=== PATIENT | female | born 1930 | race Caucasian/White ===

== ENCOUNTER 2016-05-17 15:45 | Inpatient (IN) | payer MEDICARE, OTHER ==
[~2016-05-17] VITALS: Ht 167.6 cm; Wt 85.0 kg
[2016-05-17] VITALS (26 sets, daily range): BP systolic 119–202; BP diastolic 57–128; PULSE 52–125; RESP 13–49; O2SAT 92–100; Ht 167.6 cm; Wt 85.0 kg
[~2016-05-17 15:45] MED LIST: ACET-1651 PO; ENAL5TAB85 PO; FLEC50TA PO; LEVO88TA39 PO; PANT40TA32 PO; RIVA20TA PO
--- NOTE | 2016-05-17 16:15 | NUR ---
Admit Female pt admitted as direct admit from [facility]. pt arrived via EMS cart. Pt able to ambulate from CCU room door into bed with assistance of 1. Pt a/o x3, on RA, IVL to LAC. Pt oriented to room. Pt in tachy rhythm of 120-130s. EKG showed a-flutter. Pt has mild SOA with talking/activity but reports that to be normal. Daylin GAINES notified of pt's arrival and at bedside assessing. Will continue to monitor.
--- OUTSIDE RECORDS SUMMARY | 2016-05-17 16:17 | XMS REPORT | CCD ---
Author Author YVONNE GARCIA Organization Unknown Address [address] [place] [phone] Phone 0 Care Team Providers Care Registered Occupational Therapist Name Role Phone Sanjuana PEREZ Attending Physician 0 Vital Signs Unknown. Allergies Allergy Code Allergy Type Reaction Status EGG ALBUMIN 0 Drug allergy (disorder) Active FLU VACCINE 0 Drug allergy (disorder) Active LODINE 0 Drug allergy (disorder) Active IMIPRAMINE 0 Drug allergy (disorder) Active Procedures Unknown. History of Immunizations Unknown. Problems Unknown. Results UA AUTO W/ MICRO Test Name Code Test Result Test Units Test Date/Time COLOR Yellow N/A 05/29/2013 14:25 APPEARANCE Clear N/ A 05/29/2013 14:25 GLUCOSE Negative N/ A 05/29/2013 14:25 BILIRUBIN Negative N /A 05/29/2013 14:25 KETONE Negative N/A 05/29/2013 14:25 SPEC GRAVITY <=1.005 N/A 05/29/2013 14:25 BLOOD Moderate N/A 05/29/2013 14:25 PROTEIN Negative N/ A 05/29/2013 14:25 PH 5.5 N/A 05/29/2013 14:25 UROBILINOGEN 0.2 N/ A 05/29/2013 14:25 NITRITE Negative N/ A 05/29/2013 14:25 LEUKOCYTES Small N/ A 05/29/2013 14:25 MICRO RBC 10-20 N/A 05/29/2013 14:25 MICRO WBC TNTC N/A 05/29/2013 14:25 BACTERIA 2+ N/A 05/29/2013 14:25 EPI CELLS 0-5 N/A 05/29/2013 14:25 MUCUS None Seen N/A 05/29/2013 14:25 AMORPHOUS None Seen N/A 05/29/2013 14:25 YEAST None Seen N/A 05/29/2013 14:25 CRYSTALS None Seen N /A 05/29/2013 14:25 CAST None Seen N/A 05/29/2013 14:25 URINE CULTURE? YES N /A 05/29/2013 14:25 Medications Unknown. Medications Administered Unknown. Encounters Unknown. Social History Smoking Status Code Start Date End Date Never smoker [id number] Patient Decision Aids Unknown. Instructions You were admitted to [facility] [place] [facility] on 05/29/2013. You were discharged from [facility] [place] [facility] on 05/29/2013. Should you have any questions prior to discharge, please contact a member of your healthcare team. If you have left the hospital and have any questions, please contact your primary care physician. Chief Complaint and Reason For Visit Chief Complaint Date of Onset LAB Function Status Unknown. Plan of Care Unknown. Referral/Transition of Care Unknown.
--- OUTSIDE RECORDS SUMMARY | 2016-05-17 16:17 | XMS REPORT | CCD ---
Author Author YVONNE GARCIA Organization Unknown Address [address] [place] [phone] Phone 0 Care Team Providers Care Fishing Vessel Deckhand Name Role Phone RASHAADBushra Attending Physician 0 Vital Signs Unknown. Allergies Allergy Code Allergy Type Reaction Status EGG ALBUMIN 0 Drug allergy (disorder) Active FLU VACCINE 0 Drug allergy (disorder) Active LODINE 0 Drug allergy (disorder) Active IMIPRAMINE 0 Drug allergy (disorder) Active Procedures Unknown. History of Immunizations Unknown. Problems Unknown. Results Unknown. Medications Unknown. Medications Administered Unknown. Encounters Unknown. Social History Smoking Status Code Start Date End Date Never smoker [id number] Patient Decision Aids Unknown. Instructions You were admitted to [facility] [place] on 05/11/2013. You were discharged from [facility] [place] on 05/11/2013. Should you have any questions prior to discharge, please contact a member of your healthcare team. If you have left the hospital and have any questions, please contact your primary care physician. Chief Complaint and Reason For Visit Chief Complaint Date of Onset XRAY LT KNEE Function Status Unknown. Plan of Care Unknown. Referral/Transition of Care Unknown.
--- OUTSIDE RECORDS SUMMARY | 2016-05-17 16:17 | XMS REPORT | CCD ---
Author Author MIHIR MARTINEZ Organization Unknown Address [address], [place] [phone] Phone 0 Care Team Providers Care Mold Cleaner Name Role Phone JOHNATHAN ENRIQUEZ Attending Physician [phone] THUAN VAZing Physician [phone] Vital Signs Unknown or Not Available. Allergies Allergy Code Allergy Type Reaction Status EGG ALBUMIN 0 Drug allergy Active FLU VACCINE 0 Drug allergy Active LODINE 20281016 Drug allergy Active IMIPRAMINE 56 Drug allergy Active Procedures Procedure Code Procedure Type Date CHEST [address] 03/18/2016 History of Immunizations Unknown or Not Available. Problems Problem Code Start Date Resolved Date Status Rapid afib 802625194 Active Acute CHF 39554777 Active Chronic UTI 448403763 Active Results Unknown or Not Available. Active Medications Medication Code Dose Units Frequency Route Modification Start Date/Time Levothyroxine 0.088MG Oral Tablet 499584 0.088 MILLIGRAMS DAILY ORAL 09/24/2013 08:58 Prescription Detail 0.088 MILLIGRAMS ORAL DAILY Pantoprazole Sodium 40MG Oral Tablet, Enteric Coated 531617 40 MILLIGRAMS DAILY ORAL 09/24/2013 08:58 Prescription Detail 40 MILLIGRAMS ORAL DAILY Potassium Chloride 20MEQ Oral Tablet, Extended Release 6328111 20 MEQ DAILY ORAL 09/24/2013 08:58 Prescription Detail 20 MEQ ORAL DAILY Xarelto 20MG Oral Tablet [id number] 20 MILLIGRAMS DAILY ORAL 09/24/2013 08:58 Prescription Detail 20 MILLIGRAMS ORAL DAILY Medications Administered During Visit Unknown or Not Available. Encounters Unknown or Not Available. Social History Smoking Status Code Start Date End Date Never smoker 215692004 Patient Decision Aids Unknown or Not Available. Discharge Instructions You were admitted to [facility] on 03/18/2016 16:13 You were discharged from [facility] on 03/18/2016 16:13 Should you have any questions prior to discharge, please contact a member of your healthcare team. If you have left the hospital and have any questions, please contact your primary care physician. Chief Complaint and Reason For Visit Chief Complaint Date of Onset CXR Function Status Unknown or Not Available. Plan of Care Unknown or Not Available. Referral/Transition of Care Unknown or Not Available.
--- OUTSIDE RECORDS SUMMARY | 2016-05-17 16:17 | XMS REPORT | CCD ---
Author Author YVONNE GARCIA Organization Unknown Address [address] [facility] [place] [phone] Phone 0 Care Team Providers Care Button Decorating Machine Operator Name Role Phone THUAN VAZ Attending Physician 0 Vital Signs Unknown or Not Available. Allergies Allergy Code Allergy Type Reaction Status EGG ALBUMIN 0 Drug allergy Active FLU VACCINE 0 Drug allergy Active LODINE 676411 Drug allergy Active IMIPRAMINE 5691 Drug allergy Active Procedures Unknown or Not Available. History of Immunizations Unknown or Not Available. Problems Problem Code Start Date Resolved Date Status Rapid afib 891992152 Active Acute CHF 31787538 Active Chronic UTI 842253073 Active Results CULTURE URINE - Collect Date/Time: 10/02/2014 05:00 Test Name Code Test Result Test Units Test Ref Range SPEC SOURCE: RANDOM N/A Urine Culture, Routine 630-4 Final report N/A Active Medications Medication Code Dose Units Frequency Route Modification Start Date/Time Levothyroxine 0.088MG Oral Tablet 561483 0.088 MILLIGRAMS DAILY ORAL 09/24/2013 08:58 Prescription Detail 0.088 MILLIGRAMS ORAL DAILY Pantoprazole Sodium 40MG Oral Tablet, Enteric Coated 415224 40 MILLIGRAMS DAILY ORAL 09/24/2013 08:58 Prescription Detail 40 MILLIGRAMS ORAL DAILY Potassium Chloride 20MEQ Oral Tablet, Extended Release 717442 20 MEQ DAILY ORAL 09/24/2013 08:58 Prescription Detail 20 MEQ ORAL DAILY Xarelto 20MG Oral Tablet 2813393 20 MILLIGRAMS DAILY ORAL 09/24/2013 08:58 Prescription Detail 20 MILLIGRAMS ORAL DAILY Medications Administered During Visit Unknown or Not Available. Encounters Unknown or Not Available. Social History Smoking Status Code Start Date End Date Never smoker [id number] Patient Decision Aids Unknown or Not Available. Discharge Instructions You were admitted to [facility] on 10/02/2014. You had the following tests done: SPEC SOURCE: Urine Culture, Routine You were discharged from [facility] on 10/02/2014. Should you have any questions prior to discharge, please contact a member of your healthcare team. If you have left the hospital and have any questions, please contact your primary care physician. Chief Complaint and Reason For Visit Chief Complaint Date of Onset LAB Function Status Unknown or Not Available. Plan of Care Unknown or Not Available. Referral/Transition of Care Unknown or Not Available.
--- OUTSIDE RECORDS SUMMARY | 2016-05-17 16:17 | XMS REPORT | CCD ---
Author Author YVONNE GARCIA Organization Unknown Address [address] [place] [phone] Phone 0 Care Team Providers Care Cooker Operator Name Role Phone TAMI STALLWORTH Attending Physician 0 Vital Signs Unknown or Not Available. Allergies Allergy Code Allergy Type Reaction Status EGG ALBUMIN 0 Drug allergy Active FLU VACCINE 0 Drug allergy Active LODINE 20281016 Drug allergy Active IMIPRAMINE 56 Drug allergy Active Procedures Unknown or Not Available. History of Immunizations Unknown or Not Available. Problems Problem Code Start Date Resolved Date Status Rapid afib 648097697 Active Acute CHF 12033893 Active Chronic UTI 675179517 Active Results BASIC METABOLIC - Collect Date/Time: 05/17/2014 09:37 Test Name Code Test Result Test Units Test Ref Range GLUCOSE 85 mg/dL L=70 H=110 BUN 19 mg/dL L=7 H=18 CREATININE 1.10 mg/ dL L=0.60 H=1.30 AGE 83 YEARS GFR 50.3 SODIUM 140 mmol/L L=136 H=145 POTASSIUM 4.5 mmol/ L L=3.5 H=5.1 CHLORIDE 104 mmol/L L=98 H=107 CO2 29 mmol/L L=21 H=32 CALCIUM 8.9 mg/dL L=8.5 H=10.1 PRO B-TYPE NATRIURETIC PEPTIDE - Collect Date/Time: 05/17/2014 09:37 Test Name Code Test Result Test Units Test Ref Range PBNP 154 pg/mL L=0 H=450 Active Medications Medication Code Dose Units Frequency Route Modification Start Date/Time Flecainide Acetate 50MG Oral Tablet 151348 50 MILLIGRAMS TWICE A DAY ORAL 09/24/2013 08:58 Levothyroxine 0.088MG Oral Tablet 632430 0.088 MILLIGRAMS DAILY ORAL 09/24/2013 08:58 Pantoprazole Sodium 40MG Oral Tablet, Enteric Coated 956385 40 MILLIGRAMS DAILY ORAL 09/24/2013 08:58 Potassium Chloride 20MEQ Oral Tablet, Extended Release 232087 20 MEQ DAILY ORAL 09/24/2013 08:58 Xarelto 20MG Oral Tablet 3207389 20 MILLIGRAMS DAILY ORAL 09/24/2013 08:58 Medications Administered During Visit Unknown or Not Available. Encounters Unknown or Not Available. Social History Smoking Status Code Start Date End Date Never smoker 122869884 Patient Decision Aids Unknown or Not Available. Discharge Instructions You were admitted to [facility] on 05/17/2014. You were discharged from [facility] on 05/17/2014. Should you have any questions prior to discharge, please contact a member of your healthcare team. If you have left the hospital and have any questions, please contact your primary care physician. Chief Complaint and Reason For Visit Unknown or Not Available. Function Status Unknown or Not Available. Plan of Care Unknown or Not Available. Referral/Transition of Care Unknown or Not Available.
--- OUTSIDE RECORDS SUMMARY | 2016-05-17 16:17 | XMS REPORT | Summary of Care ---
Author Author Angelo Britt M.D. Unknown Address [address] [place] [address] [place] [address] Phone Unavailable Care Team Providers Care Classification Analyst Name Role Phone Angelo Britt M.D. 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 * Refills: 0 * Started 21-Nov-2014 ActivePotassium Chloride Tamy ER 10 MEQ Oral Tablet Extended Release TAKE 1 TABLET DAILY. * Refills: 0 * Started 21-Nov-2014 ActivePantoprazole Sodium 40 MG Oral Tablet Delayed Release TAKE 1 TABLET DAILY. * Refills: 0 * Started 21-Nov-2014 ActiveLisinopril 5 MG Oral Tablet TAKE 1 TABLET DAILY. * Refills: 0 * Started 21-Nov-2014 ActiveLevothyroxine Sodium 88 MCG Oral Tablet TAKE 1 TABLET DAILY. * Refills: 0 * Started 21-Nov-2014 ActiveFurosemide 20 MG Oral Tablet TAKE 1/2 TABLET DAILY * Refills: 0 * Started 21-Nov-2014 ActiveAcetaminophen 500 MG Oral Tablet TAKE 1 TABLET TWO TO THREE TIMES DAILY * Refills: 0 * Started 21-Nov-2014 ActiveFluconazole 100 MG Oral Tablet Take 1 Tablet Daily for 3 days * Quantity: 3 Refills: 0 Angelo Britt M.D.* Started 21-Nov-2014 ActiveEstrace 0.1 MG/GM Vaginal Cream * Refills: 0 Angelo Britt M.D.* Started 20-Feb-2015 Active Allergies and Adverse Reactions Name Dates Details gabapentin Status: Active Reclast SOLN Status: Active Sulfa Drugs Status: Active Past Medical History Name Dates Details History of atrial fibrillation (V12.59, Z86.79) Status: Resolved History of recurrent urinary tract infection (V13.02, Z87.440) Status: Resolved History of thyroid disease (V12.29, Z86.39) Status: Resolved Procedures Procedure Dates Details History of Cholecystectomy History of Tonsillectomy Procedures not documented Immunization Name Dates Details Immunizations not documented Family History Mother* Name Dates Details Family history of Status: Active Father* Name Dates Details Family history of lung cancer (V16.1, Z80.1) Status: Active Brother* Name Dates Details Family history of lung cancer (V16.1, Z80.1) Status: Active Family history of cardiac disorder (V17.49, Z82.49) Status: Active Social History Name Dates Details Smoking Status* Never smoker Vital Signs Date Test Result Details 20-Feb-2015 10:08 BP Systolic 81 mm[Hg] Status: BP Diastolic 50 mm[Hg] Status: Heart Rate 60 /min Status: Height 67 in Status: Weight 180 lb Status: Body Mass Index Calculated 28.19 kg/m2 Status: Body Surface Area Calculated 1.93 m2 Status: Results Date Description Value Details Results not documented Plan of Care Planned Observations* Name Dates Details Planned Goals not documented Goal Planned Encounters* Appointment; Provider: Angelo Britt On 13-Mar-2015 10:45 Instructions * Instructions not documented Encounters Appointment; Angelo Britt Encounter Diagnosis: Problem not documented On 20-Feb-2015 10:00 Appointment; Angelo Britt Encounter Diagnosis: Problem not documented On 12-Dec-2014 11:00 Appointment; Angelo Britt Encounter Diagnosis: Problem not documented On 21-Nov-2014 10:45
--- OUTSIDE RECORDS SUMMARY | 2016-05-17 16:17 | XMS REPORT | CCD ---
Author Author YVONNE GARCIA Organization Unknown Address [address] [facility] [place] [phone] Phone 0 Care Team Providers Care Consumer Loan Processor Name Role Phone TAMI STALLWORTH Attending Physician 0 Vital Signs Unknown or Not Available. Allergies Allergy Code Allergy Type Reaction Status EGG ALBUMIN 0 Drug allergy Active FLU VACCINE 0 Drug allergy Active LODINE 187643 Drug allergy Active IMIPRAMINE 56 Drug allergy Active Procedures Unknown or Not Available. History of Immunizations Unknown or Not Available. Problems Problem Code Start Date Resolved Date Status Rapid afib 918476937 Active Acute CHF 40955851 Active Chronic UTI 771998382 Active Results Unknown or Not Available. Active Medications Medication Code Dose Units Frequency Route Modification Start Date/Time Flecainide Acetate 50MG Oral Tablet 067800 50 MILLIGRAMS TWICE A DAY ORAL 09/24/2013 08:58 Levothyroxine 0.088MG Oral Tablet 600228 0.088 MILLIGRAMS DAILY ORAL 09/24/2013 08:58 Pantoprazole Sodium 40MG Oral Tablet, Enteric Coated 551951 40 MILLIGRAMS DAILY ORAL 09/24/2013 08:58 Potassium Chloride 20MEQ Oral Tablet, Extended Release 351633 20 MEQ DAILY ORAL 09/24/2013 08:58 Xarelto 20MG Oral Tablet 5162489 20 MILLIGRAMS DAILY ORAL 09/24/2013 08:58 Medications Administered During Visit Unknown or Not Available. Encounters Unknown or Not Available. Social History Smoking Status Code Start Date End Date Never smoker 283530933 Patient Decision Aids Unknown or Not Available. Discharge Instructions You were admitted to [facility] on 04/12/2014. You were discharged from [facility] on 04/12/2014. Should you have any questions prior to [...]
--- OUTSIDE RECORDS SUMMARY | 2016-05-17 16:17 | XMS REPORT | CCD ---
Author Author YVONNE GARCIA Organization Unknown Address [address] [place] [phone] Phone 0 Care Team Providers Care Chemical Machine Tender Name Role Phone RASHAAD, E Attending Physician 0 Vital Signs Unknown or Not Available. Allergies Allergy Code Allergy Type Reaction Status EGG ALBUMIN 0 Drug allergy Active FLU VACCINE 0 Drug allergy Active LODINE 093299 Drug allergy Active IMIPRAMINE 5691 Drug allergy Active Procedures Unknown or Not Available. History of Immunizations Unknown or Not Available. Problems Problem Code Start Date Resolved Date Status Rapid afib 548957255 Active Acute CHF 12229559 Active Chronic UTI 521728404 Active Results BASIC METABOLIC Test Name Code Test Result Test Units Test Date/Time GLUCOSE 96 mg/dL 09/29/2013 14:57 BUN 20 mg/dL 09/29/2013 14:57 CREATININE 1.10 mg/ dL 09/29/2013 14:57 AGE 82 YEARS 09/29/2013 14:57 GFR 50.4 09/29/2013 14:57 SODIUM 138 mmol/L 09/29/2013 14:57 POTASSIUM 4.4 mmol/ L 09/29/2013 14:57 CHLORIDE 101 mmol/L 09/29/2013 14:57 CO2 29 mmol/L 09/29/2013 14:57 CALCIUM 9.1 mg/dL 09/29/2013 14:57 PRO B-TYPE NATRIURETIC PEPTIDE Test Name Code Test Result Test Units Test Date/Time PBNP 141 pg/mL 09/29/2013 14:57 Medications Medication Code Dose Units Frequency Route Modification Start Date/Time Stop Date/ Time Cephalexin 250MG Oral Tablet 134662 125 MILLIGRAMS DAILY ORAL 09/24/2013 08:58 Potassium Chloride 20MEQ Oral Tablet, Extended Release 637726 20 MEQ DAILY ORAL 09/24/2013 08:58 Pantoprazole Sodium 40MG Oral Tablet, Enteric Coated 036755 40 MILLIGRAMS DAILY ORAL 09/24/2013 08:58 Flecainide Acetate 50MG Oral Tablet 305368 50 MILLIGRAMS TWICE A DAY ORAL 09/24/2013 08:58 Levothyroxine 0.088MG Oral Tablet 247647 0.088 MILLIGRAMS DAILY ORAL 09/24/2013 08:58 Xarelto 20MG Oral Tablet 0900210 20 MILLIGRAMS DAILY ORAL 09/24/2013 08:58 Medications Administered Unknown or Not Available. Encounters Unknown or Not Available. Social History Smoking Status Code Start Date End Date Never smoker 530426540 Patient Decision Aids Unknown or Not Available. Discharge Instructions You were admitted to [facility] on 09/29/2013. You were discharged from [facility] on 09/29/2013. Should you have any questions prior to [...]
--- OUTSIDE RECORDS SUMMARY | 2016-05-17 16:17 | XMS REPORT | CCD ---
Author Author YVONNE GARCIA Organization Unknown Address [address] [place], [place] [phone] Phone 0 Care Team Providers Care Welding Machine Operator Gas Metal Arc Name Role Phone Sanjuana PEREZ Attending Physician 0 Vital Signs Unknown or Not Available. Allergies Allergy Code Allergy Type Reaction Status EGG ALBUMIN 0 Drug allergy Active FLU VACCINE 0 Drug allergy Active LODINE 20281016 Drug allergy Active IMIPRAMINE 56 Drug allergy Active Procedures Unknown or Not Available. History of Immunizations Unknown or Not Available. Problems Unknown or Not Available. Results UA AUTO W/ MICRO Test Name Code Test Result Test Units Test Date/Time COLOR Yellow N/A 07/31/2013 15:40 APPEARANCE Clear N/ A 07/31/2013 15:40 GLUCOSE Negative N/ A 07/31/2013 15:40 BILIRUBIN Negative N /A 07/31/2013 15:40 KETONE Negative N/A 07/31/2013 15:40 SPEC GRAVITY 1.010 N /A 07/31/2013 15:40 BLOOD Small N/A 07/31/2013 15:40 PROTEIN Negative N/ A 07/31/2013 15:40 PH 7.0 N/A 07/31/2013 15:40 UROBILINOGEN 0.2 N/ A 07/31/2013 15:40 NITRITE Negative N/ A 07/31/2013 15:40 LEUKOCYTES Negative N/A 07/31/2013 15:40 MICRO RBC 0-2 N/A 07/31/2013 15:40 MICRO WBC 0-2 N/A 07/31/2013 15:40 BACTERIA Trace N/A 07/31/2013 15:40 EPI CELLS 0-5 N/A 07/31/2013 15:40 MUCUS None Seen N/A 07/31/2013 15:40 AMORPHOUS None Seen N/A 07/31/2013 15:40 YEAST None Seen N/A 07/31/2013 15:40 CRYSTALS None Seen N /A 07/31/2013 15:40 CAST None Seen N/A 07/31/2013 15:40 URINE CULTURE? NO N/ A 07/31/2013 15:40 Medications Unknown or Not Available. Medications Administered Unknown or Not Available. Encounters Unknown or Not Available. Social History Smoking Status Code Start Date End Date Never smoker [id number] Patient Decision Aids Unknown or Not Available. Discharge Instructions You were admitted to [facility] on 07/31/2013. You were discharged from [facility] on 07/31/2013. Should you have any questions prior to [...]
--- OUTSIDE RECORDS SUMMARY | 2016-05-17 16:17 | XMS REPORT | CCD ---
Author Author YVONNE GARCIA Organization Unknown Address [address] [place] [phone] Phone 0 Care Team Providers Care Information Director Name Role Phone Jennifer MENDOZA Attending Physician 0 KELLY A Primary Surgeon 0 Vital Signs Vital Sign Value Unit Date/Time Recent/Initial? Weight Measured 176 lbs 06/29/2014 17:45 Initial VS Height 20.2 in 2014 17:45 Initial VS BMI (Body Mass Index) 3.26 kg/m^2 06/29/2014 17:45 Initial VS BSA (Body Surface Area) 1.07 m^2 06/29/2014 17:45 Initial VS Allergies Allergy Code Allergy Type Reaction Status EGG ALBUMIN 0 Drug allergy Active FLU VACCINE 0 Drug allergy Active LODINE 20281016 Drug allergy Active IMIPRAMINE 5691 Drug allergy Active Procedures Unknown or Not Available. History of Immunizations Unknown or Not Available. Problems Problem Code Start Date Resolved Date Status Rapid afib 152875324 Active Acute CHF 38896511 Active Chronic UTI 962308138 Active Results TSH - Collect Date/Time: 06/29/2014 17:55 Test Name Code Test Result Test Units Test Ref Range TSH 0.86 uIU/mL L=0.36 H=3.74 Active Medications Medication Code Dose Units Frequency Route Modification Start Date/Time Levothyroxine 0.088MG Oral Tablet [id number] 0.088 MILLIGRAMS DAILY ORAL 09/24/2013 08:58 Pantoprazole Sodium 40MG Oral Tablet, Enteric Coated [id number] 40 MILLIGRAMS DAILY ORAL 09/24/2013 08:58 Potassium Chloride 20MEQ Oral Tablet, Extended Release [id number] 20 MEQ DAILY ORAL 09/24/2013 08:58 Xarelto 20MG Oral Tablet [id number] 20 MILLIGRAMS DAILY ORAL 09/24/2013 08:58 Medications Administered During Visit Unknown or Not Available. Encounters Encounter Diagnosis Diagnosis Code Start Date SHORTNESS OF BREATH 55066 06/29/2014 Social History Smoking Status Code Start Date End Date Never smoker [id number] Patient Decision Aids Unknown or Not Available. Discharge Instructions You were admitted to [facility] on 06/29/2014 with a principal diagnosis of SHORTNESS OF BREATH. You were discharged from [facility] on 06/29/2014. Should you have any questions prior to discharge, please contact a member of your healthcare team. If you have left the hospital and have any questions, please contact your primary care physician. Chief Complaint and Reason For Visit Chief Complaint Date of Onset SOA Function Status Unknown or Not Available. Plan of Care Unknown or Not Available. Referral/Transition of Care Unknown or Not Available.
--- OUTSIDE RECORDS SUMMARY | 2016-05-17 16:17 | XMS REPORT | CCD ---
Author Author MIHIR MARTINEZ Organization Unknown Address [address] [place], [place] [id number] Phone 0 Care Team Providers Care Superintendent Measurement Name Role Phone THUAN VAZ Attending Physician [phone] Vital Signs Unknown or Not Available. Allergies Allergy Code Allergy Type Reaction Status EGG ALBUMIN 0 Drug allergy Active FLU VACCINE 0 Drug allergy Active LODINE 20281016 Drug allergy Active IMIPRAMINE 56 Drug allergy Active Procedures Unknown or Not Available. History of Immunizations Unknown or Not Available. Problems Problem Code Start Date Resolved Date Status Rapid afib 529597681 Active Acute CHF 78936317 Active Chronic UTI 635856186 Active Results COMP METABOLIC - Collect Date/Time: 02/14/2015 10:45 Test Name Code Test Result Test Units Test Ref Range GLUCOSE 85 mg/dL L=70 H=110 BUN 12 mg/dL L=7 H=18 CREATININE 1.00 mg/ dL L=0.60 H=1.30 AGE 84 YEARS GFR 56.0 SODIUM 140 mmol/L L=136 H=145 POTASSIUM 3.8 mmol/ L L=3.5 H=5.1 CHLORIDE 105 mmol/L L=98 H=107 CO2 27 mmol/L L=21 H=32 CALCIUM 8.8 mg/dL L=8.5 H=10.1 AST 14 U/L L=15 H=37 ALT 15 U/L L=12 H=78 ALKALINE PHOS 110 U/ L L=50 H=136 TOTAL PROTEIN 6.7 g/ dL L=6.4 H=8.2 ALBUMIN 3.6 g/dL L=3.4 H=5.0 TOTAL BILI 0.40 mg/ dL L=0.00 H=1.00 THYROXINE (T4) FREE - Collect Date/Time: 02/14/2015 10:45 Test Name Code Test Result Test Units Test Ref Range FT4 1.02 ng/dL L=0.76 H=1.46 TSH - Collect Date/Time: 02/14/2015 10:45 Test Name Code Test Result Test Units Test Ref Range TSH 1.19 uIU/mL L=0.36 H=3.74 CBC W/ DIFF - Collect Date/Time: 02/14/2015 10:45 Test Name Code Test Result Test Units Test Ref Range WBC 10.7 x10^3 L=4.8 H=10.8 RBC 4.32 x10^6 L=4.20 H=5.40 HEMOGLOBIN 13.6 g/ dL L=12.0 H=16.0 HEMATOCRIT 42.3 % L=37.0 H=47.0 MCV 98 fL L=80 H=100 MCH 31.5 pg L=27.0 H=33.0 MCHC 32.1 g/dL L=33.0 H=37.0 RDW 13.1 % L=11.5 H=14.5 PLATELETS 270 x10^3 L=150 H=450 MPV 8.3 fL L=7.8 H=11.0 NEUTROPHILS 81.9 % L=40.0 H=80.0 LYMPHOCYTES 11.3 % L=20.0 H=45.0 MONOCYTES 6.1 % L=0.0 H=10.0 EOSINOPHILS 0.6 % L=0.0 H=5.0 BASOPHILS 0.1 % L=0.0 H=2.0 SEG 81 %% L=40 H=80 BAND 5 %% L=0 H=5 LYMPH 8 %% L=20 H=45 MONO 5 %% L=0 H=10 EOS 0 %% L=0 H=5 BASO 1 %% L=0 H=2 ATYP LYMPH 0 %% L=0 H=10 META 0 %% L=0 H=1 REFLEX MAN DIFF YES N/A RBC MORPHOLOGY NORMAL N/A Active Medications Medication Code Dose Units Frequency Route Modification Start Date/Time Levothyroxine 0.088MG Oral Tablet [id number] 0.088 MILLIGRAMS DAILY ORAL 09/24/2013 08:58 Prescription Detail 0.088 MILLIGRAMS ORAL DAILY Pantoprazole Sodium 40MG Oral Tablet, Enteric Coated [id number] 40 MILLIGRAMS DAILY ORAL 09/24/2013 08:58 Prescription Detail 40 MILLIGRAMS ORAL DAILY Potassium Chloride 20MEQ Oral Tablet, Extended Release [id number] 20 MEQ DAILY ORAL 09/24/2013 08:58 Prescription Detail 20 MEQ ORAL DAILY Xarelto 20MG Oral Tablet [id number] 20 MILLIGRAMS DAILY ORAL 09/24/2013 08:58 Prescription Detail 20 MILLIGRAMS ORAL DAILY Medications Administered During Visit Unknown or Not Available. Encounters Encounter Diagnosis Diagnosis Code Start Date Essential (primary) hypertension I10 08/2015 Social History Smoking Status Code Start Date End Date Never smoker [id number] Patient Decision Aids Unknown or Not Available. Discharge Instructions You were admitted to [facility] on 02/14/2015 with a principal diagnosis of Essential (primary) hypertension. You were discharged from [facility] on 02/14/2015. Should you have any questions prior to [...]
--- OUTSIDE RECORDS SUMMARY | 2016-05-17 16:17 | XMS REPORT | CCD ---
Author Author YVONNE GARCIA Organization Unknown Address [address] [place] [phone] Phone 0 Care Team Providers Care Sock Ironer Name Role Phone WILFREDO SARKAR Attending Physician 0 Vital Signs Unknown or Not Available. Allergies Allergy Code Allergy Type Reaction Status EGG ALBUMIN 0 Drug allergy Active FLU VACCINE 0 Drug allergy Active LODINE 193384 Drug allergy Active IMIPRAMINE 5691 Drug allergy Active Procedures Unknown or Not Available. History of Immunizations Unknown or Not Available. Problems Unknown or Not Available. Results CBC W/ DIFF Test Name Code Test Result Test Units Test Date/Time WBC 11.9000 x10^3 08/15/2013 14:00 RBC 4.7700 x10^6 08/15/2013 14:00 HEMOGLOBIN 16.0000 g /dL 08/15/2013 14:00 HEMATOCRIT 46.2000 % 08/15/2013 14:00 MCV 97.0000 fL 08/15/2013 14:00 MCH 33.5000 pg 08/15/2013 14:00 MCHC 34.6000 g/dL 08/15/2013 14:00 RDW 13.3000 % 08/15/2013 14:00 PLATELETS 243.0000 x10^3 08/15/2013 14:00 MPV 8.2000 fL 08/15/2013 14:00 NEUTROPHILS 78.7000 % 08/15/2013 14:00 LYMPHOCYTES 13.5000 % 08/15/2013 14:00 MONOCYTES 6.7000 % 08/15/2013 14:00 EOSINOPHILS 0.6000 % 08/15/2013 14:00 BASOPHILS 0.5000 % 08/15/2013 14:00 REFLEX MAN DIFF NO N /A 08/15/2013 14:00 COMP METABOLIC Test Name Code Test Result Test Units Test Date/Time GLUCOSE 120.0000 mg/ dL 08/15/2013 14:00 BUN 16.0000 mg/dL 08/15/2013 14:00 CREATININE 1.2000 mg /dL 08/15/2013 14:00 AGE 82.0000 YEARS 08/15/2013 14:00 GFR 45.6000 08/15/2013 14:00 SODIUM 138.0000 mmol /L 08/15/2013 14:00 POTASSIUM 3.5000 mmol/L 08/15/2013 14:00 CHLORIDE 104.0000 mmol/L 08/15/2013 14:00 CO2 27.0000 mmol/L 08/15/2013 14:00 CALCIUM 9.1000 mg/ dL 08/15/2013 14:00 AST 18.0000 U/L 08/15/2013 14:00 ALT 24.0000 U/L 08/15/2013 14:00 ALKALINE PHOS 121.0000 U/L 08/15/2013 14:00 TOTAL PROTEIN 7.2000 g/dL 08/15/2013 14:00 ALBUMIN 3.7000 g/dL 08/15/2013 14:00 TOTAL BILI 0.5000 mg /dL 08/15/2013 14:00 CARDIAC PANEL Test Name Code Test Result Test Units Test Date/Time CKMB 1.2000 ng/mL 08/15/2013 14:00 CPK 23.0000 U/L 08/15/2013 14:00 CKMB% 5.2000 % 08/15/2013 14:00 TROPONIN I 0.0200 ng /mL 08/15/2013 14:00 TSH Test Name Code Test Result Test Units Test Date/Time TSH 1.0400 uIU/mL 08/15/2013 14:00 UA AUTO W/ MICRO Test Name Code Test Result Test Units Test Date/Time COLOR Yellow N/A 08/15/2013 14:15 APPEARANCE Clear N/ A 08/15/2013 14:15 GLUCOSE Negative N/ A 08/15/2013 14:15 BILIRUBIN Negative N /A 08/15/2013 14:15 KETONE Trace N/A 08/15/2013 14:15 SPEC GRAVITY 1.020 N /A 08/15/2013 14:15 BLOOD Moderate N/A 08/15/2013 14:15 PROTEIN Negative N/ A 08/15/2013 14:15 PH 5.0 N/A 08/15/2013 14:15 UROBILINOGEN 0.2 N/ A 08/15/2013 14:15 NITRITE Negative N/ A 08/15/2013 14:15 LEUKOCYTES Small N/ A 08/15/2013 14:15 MICRO RBC 2-5 N/A 08/15/2013 14:15 MICRO WBC 5-10 N/A 08/15/2013 14:15 BACTERIA 1+ N/A 08/15/2013 14:15 EPI CELLS 15-30 N/A 08/15/2013 14:15 MUCUS Large N/A 08/15/2013 14:15 AMORPHOUS Small N/A 08/15/2013 14:15 YEAST None Seen N/A 08/15/2013 14:15 CRYSTALS None Seen N /A 08/15/2013 14:15 CAST Hyaline C N/A 08/15/2013 14:15 URINE CULTURE? YES N /A 08/15/2013 14:15 Medications Unknown or Not Available. Medications Administered Unknown or Not Available. Encounters Unknown or Not Available. Social History Smoking Status Code Start Date End Date Never smoker [id number] Patient Decision Aids Unknown or Not Available. Discharge Instructions You were admitted to [facility] on 08/15/2013. You were discharged from [facility] on 08/15/2013. Should you have any questions prior to discharge, please contact a member of your healthcare team. If you have left the hospital and have any questions, please contact your primary care physician. Chief Complaint and Reason For Visit Chief Complaint Date of Onset LAB/XRAY Function Status Unknown or Not Available. Plan of Care Unknown or Not Available. Referral/Transition of Care Unknown or Not Available.
--- OUTSIDE RECORDS SUMMARY | 2016-05-17 16:18 | XMS REPORT | CCD ---
Author Author YVONNE GARCIA Organization Unknown Address [address], [place] [phone] Phone 0 Care Team Providers Care Municipal Services Manager Name Role Phone RASHAADBushra Attending Physician 0 [...] Code Start Date End Date Never smoker 566196083 Patient Decision Aids Unknown. Instructions You were admitted to [facility] on 06/16/2013. You were discharged from [facility] on 06/16/2013. Should you have any questions prior to discharge, please contact a member of your healthcare team. If you have left the hospital and have any questions, please contact your primary care physician. Chief Complaint and Reason For Visit Chief Complaint Date of Onset LAB Function Status Unknown. Plan of Care Unknown. Referral/Transition of Care Unknown.
--- OUTSIDE RECORDS SUMMARY | 2016-05-17 16:18 | XMS REPORT | Summary of Care ---
Author Author Angelo Britt M.D. Unknown Address [address] [place] [address] [place] [address] Phone Unavailable Care Team Providers Care Psychological Anthropologist Name Role Phone Angelo Britt M.D. Unavailable Unavailable Dimas Ambrose PP Unavailable Unavailable Unavailable Functional Status Functional Status Health Issues* Name Dates Details Functional status health issues are not documented Status: Cognitive Status Health Issues* Name Dates Details Cognitive status health issues are not documented Status: Problems Name Dates Details Recurrent UTI (599.0, N39.0) Status: Active Incomplete bladder emptying (788.21, R33.9) Status: Active Vaginosis (616.10, N76.0) Status: Active Medications Name Dates Details PredniSONE [...] Refills: 0 Angelo Britt M.D.* Started 21-Nov-2014 Active Allergies and Adverse Reactions Name Dates Details gabapentin Status: Active Reclast SOLN Status: Active Sulfa Drugs Status: Active Past Medical History Name Dates Details History of atrial fibrillation (V12.59, Z86.79) Status: Resolved History of recurrent urinary tract infection (V13.02, Z87.440) Status: Resolved History of thyroid disease (V12.29, Z86.39) Status: Resolved Procedures Procedure Dates Details History of Cholecystectomy History of Tonsillectomy URINE CULTURE [id number] Ordered:22-Nov-2014 Immunization Name Dates Details Immunizations not documented [...] smoker Vital Signs Date Test Result Details 21-Nov-2014 11:48 BP Systolic 147 mm[Hg] Status: BP Diastolic 80 mm[Hg] Status: Heart Rate 64 /min Status: Height 67 in Status: Weight 180 lb Status: Body Mass Index Calculated 28.19 kg/m2 Status: Body Surface Area Calculated 1.93 m2 Status: Results Date Description Value Details Results not documented Plan of Care Planned Observations* Name Dates Details Planned Goals not documented Goal Planned Encounters* Appointment; Provider: Angelo Britt On 12-Dec-2014 11:00 Instructions * Instructions not documented Encounters Appointment; Angelo Britt Encounter Diagnosis: Problem not documented On 21-Nov-2014 10:45
--- OUTSIDE RECORDS SUMMARY | 2016-05-17 16:18 | XMS REPORT | CCD ---
Author Author YVONNE GARCIA Organization Unknown Address [address] [facility] [place] [phone] Phone 0 Care Team Providers Care Maxillofacial Prosthodontist Name Role Phone TAMI STALLWORTH Attending Physician [...] Start Date Resolved Date Status Rapid afib 248404641 Active Acute CHF 79025388 Active Chronic UTI 282377360 Active Results Unknown or Not Available. Active Medications Medication Code Dose Units Frequency Route Modification Start Date/Time Flecainide Acetate 50MG Oral Tablet [id number] 50 MILLIGRAMS TWICE A DAY ORAL 09/24/2013 08:58 Levothyroxine 0.088MG Oral Tablet 507328 0.088 MILLIGRAMS DAILY ORAL 09/24/2013 08:58 Pantoprazole Sodium 40MG Oral Tablet, Enteric Coated 600070 40 MILLIGRAMS DAILY ORAL 09/24/2013 08:58 Potassium Chloride 20MEQ Oral Tablet, Extended Release 609606 20 MEQ DAILY ORAL 09/24/2013 08:58 Xarelto 20MG Oral Tablet 1545897 20 MILLIGRAMS DAILY ORAL 09/24/2013 08:58 Medications Administered During Visit Unknown or Not Available. Encounters Unknown or Not Available. Social History Smoking Status Code Start Date End Date Never smoker 441627866 Patient Decision Aids Unknown or Not Available. Discharge Instructions You were admitted to [facility] on 03/05/2014. You were discharged from [facility] on 03/05/2014. Should you have any questions prior to discharge, please contact a member of your healthcare team. If you have left the hospital and have any questions, please contact your primary care physician. Chief Complaint and Reason For Visit Chief Complaint Date of Onset US CAROTID BILT DUPLEX Function Status Unknown or Not Available. Plan of Care Unknown or Not Available. Referral/Transition of Care Unknown or Not Available.
--- OUTSIDE RECORDS SUMMARY | 2016-05-17 16:18 | XMS REPORT | CCD ---
Author Author MIHIR MARTINEZ Organization Unknown Address [address] [facility] [place] [phone] Phone 0 Care Team Providers Care Fork Lift Mechanic Name Role Phone JOHNATHAN ENRIQUEZ Attending Physician [phone] Vital Signs Unknown or Not Available. Allergies Allergy Code Allergy Type Reaction Status EGG ALBUMIN 0 Drug allergy Active FLU VACCINE 0 Drug allergy Active LODINE 299279 Drug allergy Active IMIPRAMINE 56 Drug allergy Active Procedures Unknown or Not Available. History of Immunizations Unknown or Not Available. Problems Problem Code Start Date Resolved Date Status Rapid afib 591898616 Active Acute CHF 46443851 Active Chronic UTI 008088312 Active Results Unknown or Not Available. Active Medications Medication Code Dose Units Frequency Route Modification Start Date/Time Levothyroxine 0.088MG Oral Tablet 720317 0.088 MILLIGRAMS DAILY ORAL 09/24/2013 08:58 Prescription Detail 0.088 MILLIGRAMS ORAL DAILY Pantoprazole Sodium 40MG Oral Tablet, Enteric Coated 914687 40 MILLIGRAMS DAILY ORAL 09/24/2013 08:58 Prescription Detail 40 MILLIGRAMS ORAL DAILY Potassium Chloride 20MEQ Oral Tablet, Extended Release 5610026 20 MEQ DAILY ORAL 09/24/2013 08:58 Prescription Detail 20 MEQ ORAL DAILY Xarelto 20MG Oral Tablet 5899807 20 MILLIGRAMS DAILY ORAL 09/24/2013 08:58 Prescription Detail 20 MILLIGRAMS ORAL DAILY Medications Administered During Visit Unknown or Not Available. Encounters Unknown or Not Available. Social History Smoking Status Code Start Date End Date Never smoker 291655040 Patient Decision Aids Unknown or Not Available. Discharge Instructions You were admitted to [facility] on 03/05/2016 14:14 You were discharged from [facility] on 03/05/2016 14:15 Should you have any questions prior to discharge, please contact a member of your healthcare team. If you have left the hospital and have any questions, please contact your primary care physician. Chief Complaint and Reason For Visit Chief Complaint Date of Onset EKG/US ECHO 2D COMP Function Status Unknown or Not Available. Plan of Care Unknown or Not Available. Referral/Transition of Care Unknown or Not Available.
--- OUTSIDE RECORDS SUMMARY | 2016-05-17 16:18 | XMS REPORT | CCD ---
Author Author YVONNE GARCIA Organization Unknown Address [address] [place] [phone] Phone 0 Care Team Providers Care Lead Electrical Engineer Name Role Phone Sanjuana PEREZ Attending Physician 0 Vital Signs Unknown. Allergies Allergy Code Allergy Type Reaction Status EGG ALBUMIN 0 Drug allergy (disorder) Active FLU VACCINE 0 Drug allergy (disorder) Active LODINE 0 Drug allergy (disorder) Active IMIPRAMINE 0 Drug allergy (disorder) Active Procedures Unknown. History of Immunizations Unknown. Problems Unknown. Results CBC W/ DIFF Test Name Code Test Result Test Units Test Date/Time WBC 8.1000 x10^3 05/17/2013 16:35 RBC 4.1500 x10^6 05/17/2013 16:35 HEMOGLOBIN 13.4000 g /dL 05/17/2013 16:35 HEMATOCRIT 40.3000 % 05/17/2013 16:35 MCV 97.0000 fL 05/17/2013 16:35 MCH 32.4000 pg 05/17/2013 16:35 MCHC 33.3000 g/dL 05/17/2013 16:35 RDW 12.8000 % 05/17/2013 16:35 PLATELETS 215.0000 x10^3 05/17/2013 16:35 MPV 8.6000 fL 05/17/2013 16:35 NEUTROPHILS 67.0000 % 05/17/2013 16:35 LYMPHOCYTES 23.4000 % 05/17/2013 16:35 MONOCYTES 8.1000 % 05/17/2013 16:35 EOSINOPHILS 0.7000 % 05/17/2013 16:35 BASOPHILS 0.8000 % 05/17/2013 16:35 REFLEX MAN DIFF NO N /A 05/17/2013 16:35 BASIC METABOLIC Test Name Code Test Result Test Units Test Date/Time GLUCOSE 92.0000 mg/ dL 05/17/2013 16:35 BUN 14.0000 mg/dL 05/17/2013 16:35 CREATININE 1.2000 mg /dL 05/17/2013 16:35 AGE 82.0000 YEARS 05/17/2013 16:35 GFR 45.6000 05/17/2013 16:35 SODIUM 141.0000 mmol /L 05/17/2013 16:35 POTASSIUM 4.0000 mmol/L 05/17/2013 16:35 CHLORIDE 103.0000 mmol/L 05/17/2013 16:35 CO2 30.0000 mmol/L 05/17/2013 16:35 CALCIUM 9.0000 mg/ dL 05/17/2013 16:35 Medications Unknown. Medications Administered Unknown. Encounters Unknown. Social History Smoking Status Code Start Date End Date Never smoker 423100341 Patient Decision Aids Unknown. Instructions You were admitted to [facility] on 05/17/2013. You were discharged from [facility] on 05/17/2013. Should you have any questions prior to discharge, please contact a member of your healthcare team. If you have left the hospital and have any questions, please contact your primary care physician. Chief Complaint and Reason For Visit Chief Complaint Date of Onset LAB Function Status Unknown. Plan of Care Unknown. Referral/Transition of Care Unknown.
--- OUTSIDE RECORDS SUMMARY | 2016-05-17 16:18 | XMS REPORT | CCD ---
Author Author YVONNE GARCIA Organization Unknown Address [address] [place] [phone] Phone 0 Care Team Providers Care Rn L And D Name Role Phone Sanjuana PEREZ Attending Physician [...] Test Units Test Date/Time COLOR Yellow N/A 06/06/2013 15:10 APPEARANCE Clear N/ A 06/06/2013 15:10 GLUCOSE Negative N/ A 06/06/2013 15:10 BILIRUBIN Negative N /A 06/06/2013 15:10 KETONE Negative N/A 06/06/2013 15:10 SPEC GRAVITY 1.010 N /A 06/06/2013 15:10 BLOOD Small N/A 06/06/2013 15:10 PROTEIN Negative N/ A 06/06/2013 15:10 PH 6.5 N/A 06/06/2013 15:10 UROBILINOGEN 0.2 N/ A 06/06/2013 15:10 NITRITE Negative N/ A 06/06/2013 15:10 LEUKOCYTES Negative N/A 06/06/2013 15:10 MICRO RBC 0-2 N/A 06/06/2013 15:10 MICRO WBC 0-2 N/A 06/06/2013 15:10 BACTERIA None Seen N /A 06/06/2013 15:10 EPI CELLS 0-5 N/A 06/06/2013 15:10 MUCUS None Seen N/A 06/06/2013 15:10 AMORPHOUS None Seen N/A 06/06/2013 15:10 YEAST None Seen N/A 06/06/2013 15:10 CRYSTALS None Seen N /A 06/06/2013 15:10 CAST None Seen N/A 06/06/2013 15:10 URINE CULTURE? NO N/ A 06/06/2013 15:10 Medications Unknown. Medications Administered Unknown. Encounters Unknown. Social History Smoking Status Code Start Date End Date Never smoker 146480745 Patient Decision Aids Unknown. Instructions You were admitted to [facility] on 06/06/2013. You were discharged from [facility] on 06/06/2013. Should you have any questions prior to discharge, please contact a member of your healthcare team. If you have left the hospital and have any questions, please contact your primary care physician. Chief Complaint and Reason For Visit Chief Complaint Date of Onset LAB Function Status Unknown. Plan of Care Unknown. Referral/Transition of Care Unknown.
--- OUTSIDE RECORDS SUMMARY | 2016-05-17 16:18 | XMS REPORT | Summary of Care ---
Author Author Angelo Britt M.D. Unknown Address [address] [place] [address] [place] [address] Phone Unavailable Care Team Providers Care Stock Plan Administrator Name Role Phone Angelo Britt M.D. Unavailable Unavailable Dimas Ambroes PP Unavailable Unavailable Unavailable Functional Status Functional [...]
--- OUTSIDE RECORDS SUMMARY | 2016-05-17 16:19 | XMS REPORT | CCD ---
Author Author YVONNE GARCIA Organization Unknown Address [address] [place], [place] [phone] Phone 0 Care Team Providers Care Cut Pressman Name Role Phone RASHAAD, Bushra Attending Physician 0 Vital Signs Unknown. Allergies [...] Code Start Date End Date Never smoker [id number] Patient Decision Aids Unknown. Discharge Instructions You were admitted to [facility] on 06/26/2013. You were discharged from [facility] on 06/26/2013. Should you have any questions prior to discharge, please contact a member of your healthcare team. If you have left the hospital and have any questions, please contact your primary care physician. Chief Complaint and Reason For Visit Chief Complaint Date of Onset LAB Function Status Unknown. Plan of Care Unknown. Referral/Transition of Care Unknown.
--- OUTSIDE RECORDS SUMMARY | 2016-05-17 16:19 | XMS REPORT | CCD ---
Author Author MIHIR MARTINEZ Organization Unknown Address [address], [place] [id number] Phone 0 Care Team Providers Care Auto Mechanics Teacher Name Role Phone THUAN VAZ Attending Physician [phone] Vital Signs Unknown or Not Available. Allergies Allergy Code Allergy Type Reaction Status EGG ALBUMIN 0 Drug allergy Active FLU VACCINE 0 Drug allergy Active LODINE 20281016 Drug allergy Active IMIPRAMINE 56 Drug allergy Active Procedures Unknown or Not Available. History of Immunizations Unknown or Not Available. Problems Problem Code Start Date Resolved Date Status Rapid afib 495694484 Active Acute CHF 75127309 Active Chronic UTI 017469379 Active Results UA AUTO W/ MICRO - Collect Date/Time: 02/26/2016 07:00 Test Name Code Test Result Test Units Test Ref Range COLOR Yellow N/A NORMAL: Yellow APPEARANCE Slightly N/A NORMAL: Clear GLUCOSE Negative N/ A NORMAL: Negative BILIRUBIN Negative N /A NORMAL: Negative KETONE Negative N/A NORMAL: Negative SPEC GRAVITY 1.015 N /A NORMAL: 1.005-1.030 BLOOD Trace-in N/A NORMAL: Negative PROTEIN Negative N/ A NORMAL: Negative PH 6.0 N/A NORMAL: 5.0-8.0 UROBILINOGEN 0.2 N/ A NORMAL: Negative NITRITE Positive N/ A NORMAL: Negative LEUKOCYTES Trace N/ A NORMAL: Negative MICRO RBC None Seen N/A NORMAL: 0-2 MICRO WBC 2-5 N/A NORMAL: 0-2 BACTERIA 4+ N/A NORMAL: None-Trace EPI CELLS 0-5 N/A NORMAL: 0-15 MUCUS None Seen N/A NORMAL: None-Small AMORPHOUS None Seen N/A NORMAL: None Seen YEAST None Seen N/A NORMAL: None Seen CRYSTALS None Seen N /A NORMAL: None Seen CAST None Seen N/A NORMAL: None Seen URINE CULTURE? YES N /A CULTURE URINE - Collect Date/Time: 02/26/2016 07:00 Test Name Code Test Result Test Units Test Ref Range SPEC SOURCE: RANDOM N/A Urine Culture, Routine 630-4 Final report N/A Result 1 630-4 Klebsiella pneumoniae N/A Active Medications Medication Code Dose Units Frequency Route Modification Start Date/Time Levothyroxine 0.088MG Oral Tablet 528781 0.088 MILLIGRAMS DAILY ORAL 09/24/2013 08:58 Prescription Detail 0.088 MILLIGRAMS ORAL DAILY Pantoprazole Sodium 40MG Oral Tablet, Enteric Coated 686192 40 MILLIGRAMS DAILY ORAL 09/24/2013 08:58 Prescription Detail 40 MILLIGRAMS ORAL DAILY Potassium Chloride 20MEQ Oral Tablet, Extended Release [id number] 20 MEQ DAILY ORAL 09/24/2013 08:58 Prescription Detail 20 MEQ ORAL DAILY Xarelto 20MG Oral Tablet [id number] 20 MILLIGRAMS DAILY ORAL 09/24/2013 08:58 Prescription Detail 20 MILLIGRAMS ORAL DAILY Medications Administered During Visit Unknown or Not Available. Encounters Unknown or Not Available. Social History Smoking Status Code Start Date End Date Never smoker 215668130 Patient Decision Aids Unknown or Not Available. Discharge Instructions You were admitted to [facility] on 02/26/2016 12:03 You had the following tests done: CULTURE URINE UA AUTO W/ MICRO You were discharged from [facility] on 02/26/2016 12:03 Should you have any questions prior to discharge, please contact a member of your healthcare team. If you have left the hospital and have any questions, please contact your primary care physician. Chief Complaint and Reason For Visit Chief Complaint Date of Onset DROP OFF LAB Function Status Unknown or Not Available. Plan of Care Unknown or Not Available. Referral/Transition of Care Unknown or Not Available.
--- OUTSIDE RECORDS SUMMARY | 2016-05-17 16:19 | XMS REPORT | CCD ---
Author Author YVONNE GARCIA Organization Unknown Address [address] [facility] [place] [id number] Phone 0 Care Team Providers Care Insurance Job Titles Name Role Phone JOHNATHAN ENRIQUEZ Attending Physician [phone] Vital Signs Unknown or Not Available. Allergies Allergy Code Allergy Type Reaction Status EGG ALBUMIN 0 Drug allergy Active FLU VACCINE 0 Drug allergy Active LODINE 467112 Drug allergy Active IMIPRAMINE 56 Drug allergy Active Procedures Unknown or Not Available. History of Immunizations Unknown or Not Available. Problems Problem Code Start Date Resolved Date Status Rapid afib 677699856 Active Acute CHF 28573116 Active Chronic UTI 058275888 Active Results Unknown or Not Available. Medications Medication Code Dose Units Frequency Route Modification Start Date/Time Stop Date/ Time Potassium Chloride 20MEQ Oral Tablet, Extended Release 433840 20 MEQ DAILY ORAL 09/24/2013 08:58 Pantoprazole Sodium 40MG Oral Tablet, Enteric Coated 591041 40 MILLIGRAMS DAILY ORAL 09/24/2013 08:58 Flecainide Acetate 50MG Oral Tablet 587194 50 MILLIGRAMS TWICE A DAY ORAL 09/24/2013 08:58 Levothyroxine 0.088MG Oral Tablet 270499 0.088 MILLIGRAMS DAILY ORAL 09/24/2013 08:58 Xarelto 20MG Oral Tablet 8520883 20 MILLIGRAMS DAILY ORAL 09/24/2013 08:58 Medications Administered Unknown or Not Available. Encounters Unknown or Not Available. Social History Smoking Status Code Start Date End Date Never smoker 492176493 Patient Decision Aids Unknown or Not Available. Discharge Instructions [facility] on 12/20/2013. You were discharged from [facility] on 12/20/2013. Should you have any questions prior to discharge, please contact a member of your healthcare team. If you have left the hospital and have any questions, please contact your primary care physician. Chief Complaint and Reason For Visit Chief Complaint Date of Onset EKG Function Status Unknown or Not Available. Plan of Care Unknown or Not Available. Referral/Transition of Care Unknown or Not Available.
--- OUTSIDE RECORDS SUMMARY | 2016-05-17 16:19 | XMS REPORT | CCD ---
Author Author MIHIR MARTINEZ Organization Unknown Address [address], [place] [id number] Phone 0 Care Team Providers Care Belt Builder Helper Name Role Phone THUAN VAZ Attending Physician [phone] Vital Signs Unknown or Not Available. Allergies Allergy Code Allergy Type Reaction Status EGG ALBUMIN 0 Drug allergy Active FLU VACCINE 0 Drug allergy Active LODINE 20281016 Drug allergy Active IMIPRAMINE 56 Drug allergy Active Procedures Unknown or Not Available. History of Immunizations Unknown or Not Available. Problems Problem Code Start Date Resolved Date Status Rapid afib 568755423 Active Acute CHF 97145013 Active Chronic UTI 082618536 Active Results COMP METABOLIC - Collect Date/Time: 03/12/2016 09:50 Test Name Code Test Result Test Units Test Ref Range GLUCOSE 77 mg/dL L=70 H=110 BUN 15 mg/dL L=7 H=18 CREATININE 0.93 mg/ dL L=0.60 H=1.30 AGE 85 YEARS GFR 57.2 L=60.0 H=120 SODIUM 141 mmol/L L=136 H=145 POTASSIUM 3.7 mmol/ L L=3.5 H=5.1 CHLORIDE 105 mmol/L L=98 H=107 CO2 30 mmol/L L=21 H=32 CALCIUM 9.0 mg/dL L=8.5 H=10.1 AST 12 U/L L=15 H=37 ALT 12 U/L L=12 H=78 ALKALINE PHOS 108 U/ L L=50 H=136 TOTAL PROTEIN 6.4 g/ dL L=6.4 H=8.2 ALBUMIN 3.4 g/dL L=3.4 H=5.0 TOTAL BILI 0.40 mg/ dL L=0.00 H=1.00 THYROXINE (T4) FREE - Collect Date/Time: 03/12/2016 09:50 Test Name Code Test Result Test Units Test Ref Range FT4 1.23 ng/dL L=0.76 H=1.46 TSH - Collect Date/Time: 03/12/2016 09:50 Test Name Code Test Result Test Units Test Ref Range TSH 0.92 uIU/mL L=0.36 H=3.74 CBC W/ DIFF - Collect Date/Time: 03/12/2016 09:50 Test Name Code Test Result Test Units Test Ref Range WBC 10.2 x10^3 L=4.8 H=10.8 RBC 4.27 x10^6 L=4.20 H=5.40 HEMOGLOBIN 13.1 g/ dL L=12.0 H=16.0 HEMATOCRIT 39.7 % L=37.0 H=47.0 MCV 93 fL L=80 H=100 MCH 30.7 pg L=27.0 H=33.0 MCHC 33.0 g/dL L=33.0 H=37.0 RDW 12.8 % L=11.5 H=14.5 PLATELETS 263 x10^3 L=150 H=450 MPV 8.4 fL L=7.8 H=11.0 NEUTROPHILS 79.3 % L=40.0 H=80.0 LYMPHOCYTES 9.9 % L=20.0 H=45.0 MONOCYTES 8.3 % L=0.0 H=10.0 EOSINOPHILS 1.9 % L=0.0 H=5.0 BASOPHILS 0.6 % L=0.0 H=2.0 REFLEX MAN DIFF NO N /A Active Medications Medication Code Dose Units Frequency Route Modification Start Date/Time Levothyroxine 0.088MG Oral Tablet [id number] 0.088 MILLIGRAMS DAILY ORAL 09/24/2013 08:58 Prescription Detail 0.088 MILLIGRAMS ORAL DAILY Pantoprazole Sodium 40MG Oral Tablet, Enteric Coated [id number] 40 MILLIGRAMS DAILY ORAL 09/24/2013 08:58 Prescription Detail 40 MILLIGRAMS ORAL DAILY Potassium Chloride 20MEQ Oral Tablet, Extended Release 4023442 20 MEQ DAILY ORAL 09/24/2013 08:58 Prescription Detail 20 MEQ ORAL DAILY Xarelto 20MG Oral Tablet [id number] 20 MILLIGRAMS DAILY ORAL 09/24/2013 08:58 Prescription Detail 20 MILLIGRAMS ORAL DAILY Medications Administered During Visit Unknown or Not Available. Encounters Unknown or Not Available. Social History Smoking Status Code Start Date End Date Never smoker 900474171 Patient Decision Aids Unknown or Not Available. Discharge Instructions [facility] on 03/12/2016 10:26 You had the following tests done: CBC W / DIFF COMP METABOLIC THYROXINE (T4) FREE TSH [facility] on 03/12/2016 10:26 Should you have any questions prior to [...]
--- OUTSIDE RECORDS SUMMARY | 2016-05-17 16:19 | XMS REPORT | Continuity of Care Document ---
Demographics Preferred Language Unknown Marital Status Unknown Adventist Affiliation Unknown Race Unknown Ethnic Group Unknown Author Author [facility] Organization [facility] Address Unknown Phone Unavailable Allergies Medications Problems Procedures Results Encounters ACCT No. Visit Date/Time Discharge Status Pt. Type Provider Facility Loc./Unit Complaint [id number] 03/26/2016 15:11:00 ACT Unknown [id number] 03/24/2016 09:38:00 ACT Unknown [id number] 03/24/2016 09:38:00 ACT Unknown [id number] 03/24/2016 08:17:00 ACT Unknown [id number] 03/12/2015 08:06:00 ACT Unknown [id number] 03/01/2015 12:49:00 ACT Unknown [id number] 03/01/2015 12:49:00 ACT Unknown [id number] 03/01/2015 12:49:00 ACT Unknown [id number] 05/09/2014 10:31:00 ACT Unknown [id number] 03/14/2014 09:46:00 ACT Unknown [id number] 12/22/2013 10:00:00 ACT Unknown [id number] 11/17/2013 12:56:00 ACT Unknown [id number] 11/06/2013 11:13:00 ACT Unknown [id number] 10/13/2013 12:58:00 ACT Unknown [id number] 10/13/2013 12:58:00 ACT Unknown [id number] 10/02/2013 10:45:00 ACT Unknown [id number] 08/28/2013 09:10:00 ACT Unknown [id number] 08/17/2013 08:54:00 ACT Unknown [id number] 08/17/2013 08:54:00 ACT Unknown [id number] 07/07/2013 08:16:00 ACT Unknown [id number] 06/20/2013 10:08:00 ACT Unknown [id number] 06/12/2013 08:16:00 ACT Unknown [id number] 06/01/2013 13:30:00 ACT Unknown [id number] 05/18/2013 12:23:00 ACT Unknown [id number] 05/16/2013 10:54:00 ACT Unknown [id number] 02/10/2013 09:34:00 ACT Unknown [id number] 11/23/2012 09:02:00 ACT Unknown
--- OUTSIDE RECORDS SUMMARY | 2016-05-17 16:19 | XMS REPORT | CCD ---
Author Author YVONNE GARCIA Organization Unknown Address [address] [place] [id number] Phone 0 Care Team Providers Care Director Product Safety Name Role Phone RASHAAD, E Attending Physician 0 Vital Signs Unknown. Allergies [...] Test Units Test Date/Time COLOR Yellow N/A 07/12/2013 13:15 APPEARANCE Clear N/ A 07/12/2013 13:15 GLUCOSE Negative N/ A 07/12/2013 13:15 BILIRUBIN Negative N /A 07/12/2013 13:15 KETONE Negative N/A 07/12/2013 13:15 SPEC GRAVITY 1.015 N /A 07/12/2013 13:15 BLOOD Small N/A 07/12/2013 13:15 PROTEIN Negative N/ A 07/12/2013 13:15 PH 7.0 N/A 07/12/2013 13:15 UROBILINOGEN 1.0 N/ A 07/12/2013 13:15 NITRITE Negative N/ A 07/12/2013 13:15 LEUKOCYTES Negative N/A 07/12/2013 13:15 MICRO RBC 5-10 N/A 07/12/2013 13:15 MICRO WBC 5-10 N/A 07/12/2013 13:15 BACTERIA Trace N/A 07/12/2013 13:15 EPI CELLS 0-5 N/A 07/12/2013 13:15 MUCUS None Seen N/A 07/12/2013 13:15 AMORPHOUS None Seen N/A 07/12/2013 13:15 YEAST None Seen N/A 07/12/2013 13:15 CRYSTALS None Seen N /A 07/12/2013 13:15 CAST None Seen N/A 07/12/2013 13:15 URINE CULTURE? YES N /A 07/12/2013 13:15 Medications Unknown. Medications Administered Unknown. Encounters Unknown. Social History Smoking Status Code Start Date End Date Never smoker [id number] Patient Decision Aids Unknown. Discharge Instructions You were admitted to [facility] on 07/12/2013. You were discharged from [facility] on 07/12/2013. Should you have any questions prior to discharge, please contact a member of your healthcare team. If you have left the hospital and have any questions, please contact your primary care physician. Chief Complaint and Reason For Visit Chief Complaint Date of Onset LAB Function Status Unknown. Plan of Care Unknown. Referral/Transition of Care Unknown.
--- OUTSIDE RECORDS SUMMARY | 2016-05-17 16:19 | XMS REPORT | Summary of Care ---
Author Author Angelo Britt M.D. Unknown Address [address] [place] [address] [place] [address] Phone Unavailable Care Team Providers Care Nurse Receptionist Name Role Phone Angelo Britt M.D. Unavailable [...] Incomplete bladder emptying (788.21, R33.9) Status: Active Medications Name Dates Details PredniSONE [...] Refills: 0 Angelo Britt M.D.* Started 21-Nov-2014 ActiveCiprofloxacin HCl - 500 MG Oral Tablet TAKE 1 TABLET ONE TIME ONLY * Quantity: 1 Refills: 0 Angelo Britt M.D.* Started 11-Dec-2014 Active Allergies and Adverse Reactions Name Dates [...] smoker Vital Signs Date Test Result Details 12-Dec-2014 11:00 Height 67 in Status: Weight 180 lb [...]
--- OUTSIDE RECORDS SUMMARY | 2016-05-17 16:19 | XMS REPORT | Continuity of Care Document ---
Author Author [facility] Organization [facility] Address Unknown Phone Unavailable Support Name Relationship Address Phone PABLO ENRIQUEZ MD Caregiver [facility] [address] [place] [address] DR, [address] [address] WILFREDO SARKAR APRN Caregiver [facility] Unknown [phone] COLEEN CARTER (DAUGHTER IN LAW) Next Of Kin [address] [place], [place] [address] Insurance Providers Payer Name Policy Number Subscriber Name Relationship Medicare [id number] Dustin Carter 18 Self Other A Insurance [id number] Dustin Carter 18 Self Advance Directives Directive Response Recorded Date/Time Advanced Directives Type Living Will DPOA for Healthcare 08/15/13 6:50pm Ordered Resuscitation Status Full Code 08/15/13 5:52pm Resuscitation Documents on File No 08/15/13 6:50pm Chief Complaint and Reason for Visit Chief Complaint ANTI ARYTHMIC THERAPY Reason for Visit Atrial fibrillation with RVR Hypertension Problems Medical Problems Problem Onset Date Status Atrial fibrillation with RVR Unknown Active Hypertension Unknown Active Dyspnea Unknown Active Hypothyroidism Unknown Active Medications Medication Dose Route Sig Days/Qty Instructions Order Date Discontinued Date Status Duloxetine Hcl 60 Mg PO DAILY 10/04/08 08/15/13 Discontinued Prednisone 7 Mg PO DAILY 10/04/08 09/14/11 Discontinued Propranolol Hcl 120 Mg PO DAILY 10/04/08 06/11/10 Discontinued Nebivolol Hcl 10 Mg PO DAILY 06/11/10 09/14/11 Discontinued Acetaminophen 1,000 Mg PO THREE TIMES A DAY 06/12/10 09/14/11 Discontinued Verapamil Hcl 120 Mg PO DAILY 09/14/11 08/17/13 Discontinued Pantoprazole Sodium 40 Mg PO DAILY 09/14/11 Active Acetaminophen 1,000 Mg PO THREE TIMES A DAY 09/14/11 Active Enalapril Maleate 5 Mg PO DAILY 08/15/13 08/24/13 Discontinued Sotalol Hcl 40 Mg PO BEFORE MEALS TWICE A DAY 60 Qty 08/17/13 Discontinued Rivaroxaban 20 Mg PO GIVE WITH SUPPER 30 Qty 08/17/13 Active Levothyroxine Sodium 88 Mcg PO DAILY 08/22/13 Active Enalapril Maleate 10 Mg PO DAILY 30 Qty 08/24/13 Active Flecainide Acetate 50 Mg PO TWICE A DAY 60 Qty 08/24/13 Active Social History Social History Problem Response Recorded Date/Time Smoking Status Never smoker 08/15/2013 6:51pm Chewing Tobacco Status No 04/25/2012 11:50am Hx Substance Use No 04/25/2012 11:50am Hx Alcohol Use No 04/25/2012 11:50am Has the pt used tobacco in the last 12 months No 08/22/2013 5:13pm Query Response Start Date Stop Date Smoking Status Never smoker Hospital Discharge Instructions Instructions: Care Instructions: Reason for Hospitalization: Antiarrythmic therapy and med changes I was in the hospital because (patient own words): my heart rhythm and to have my meds changed Discharge Diet: Heart Healthy Discharge Activity: No restirctions Follow Up Appointments: Follow-up with Dr. Enriquez in [place] on Thursday, August 29, 2013 at 1:20 pm. Patient Instructions: Your Enalopril dose was changed from 5 mg to 10 mg daily. You may take 2 of your 5 mg tabs a day until they are gone and then start the higher dose. Monitor your blood pressures 2-3 times a week and bring them with you to your appointment for review. New Scripts Called to Pharmacy: ENALAPRIL MALEATE 10 MG BY MOUTH ONCE A DAY TAMBOCOR 50 MG BY MOUTH TWICE A DAY Condition at time of discharge: Good Care Plan Discharge Patient: Goal: Increase cardio excercise Control blood pressure Patient Instructions: see patient instructions Plan of Care Discharge Date 08/24/13 11:55am Disposition 01 DISCHARGED HOME, SELF-CARE Instructions/Education Provided High Blood Pressure (Hypertension) ( Alternative Therapy) DI for Atrial Fibrillation Flecainide Enalapril Prescriptions See Medications Section Functional Status Query Response Date Recorded Physical Hygiene Self August 24, 2013 11:55am Disabilities Visual August 17, 2013 11:01am Devices Used Glasses August 24, 2013 11:55am Dressing Self August 24, 2013 11:55am Ambulation Self August 17, 2013 11:01am Diet Self August 24, 2013 11:55am Mental Status Alert Oriented August 17, 2013 11:01am Disabilities Visual August 17, 2013 11:01am Devices Used Glasses August 24, 2013 11:55am Physical Hygiene Self August 24, 2013 11:55am Dressing Self August 24, 2013 11:55am Ambulation Self August 17, 2013 11:01am Diet Self August 24, 2013 11:55am Allergies, Adverse Reactions, Alerts Allergen Type Severity Reaction Status Last Updated Influenza Virus Vaccine Allergy Mild ITCH Active 08/22/13 Immunizations Name Given Type Hx Influenza Vaccination N allergic to vaccine Historical Hx Pneumococcal Vaccination Y 10 years ago Historical Hx Influenza Vaccination N allergic to vaccine Historical Vital Signs Acute Vital Signs Vital Response Date/Time Temperature (Fahrenheit) 98.5 deg F (96.8 - 99.1) Temperature (Calculated Celsius) 36.10764 degrees C (36.0 - 37.3) Temperature Source Oral Pulse Rate (adult) 73 bpm (60 - 100) Respiratory Rate 17 breaths/min (10 - 20) O2 Sat by Pulse Oximetry 97 % (90 - 100) Blood Pressure 159/70 mm Hg Blood Pressure Source Automatic Cuff Height 5 ft 6 in Weight 179 lb Body Mass Index 28.0 kg/m^2 Results Test Source Date Result Interp. Ref. Range Comments Alanine Aminotransferase (ALT/SGPT) August 22, 2013 5:28pm 48 U/L N 9-52 Albumin August 22, 2013 5:28pm 3.6 G/DL N 3.5-5.0 Albumin/Globulin Ratio August 22, 2013 5:28pm 1.3 RATIO N 1.1-2.2 Alkaline Phosphatase August 22, 2013 5:28pm 131 U/L H 38-126 Anion Gap August 24, 2013 7:14am 8 MEQ/L N 5-15 Aspartate Amino Transf (AST/SGOT) August 22, 2013 5:28pm 29 U/L N 14-36 BUN/Creatinine Ratio August 24, 2013 7:14am 14 RATIO N 6-26 Basophils # (Auto) August 22, 2013 5:28pm 0.1 T/MM3 N 0-0.2 Basophils (%) (Auto) August 22, 2013 5:28pm 0.7 % N 0-2 Blood Urea Nitrogen August 24, 2013 7:14am 10.0 MG/DL N 7-17 Calcium Level August 24, 2013 7:14am 8.9 MG/DL N 8.4-10.2 Calculated Osmolality August 24, 2013 7:14am 269 MOSM/KG N 261-280 Carbon Dioxide Level August 24, 2013 7:14am 30 MEQ/L N 22-30 Chemistry Specimen Hemolysis August 24, 2013 7:14am < 15 0-25 0-25: No Hemolysis.26-70: Slight Hemolysis - can falsely elevate K and Urine Protein. 71-285: Moderate Hemolysis - can falsely elevate K, Troponin I, CA 19-9, PTH, CSF GLucose, and Urine Protein, and can falsely decrease Phenytoin. 286-999: Gross Hemolysis - can falsely elevate K, Troponin I, CA 19-9, PTH, CSF Glucose, and Urine Protine, and can falsely decrease Phenytoin. Recommend specimen recollection. Chloride Level August 24, 2013 7:14am 102 MEQ/L N 98-107 Cholesterol Level August 16, 2013 12:55am 181 MG/DL N 132-199 Cholesterol/HDL Ratio August 16, 2013 12:55am 2.8 RATIO N 0-4.0 Creatine Kinase MB August 16, 2013 8:55am 0.5 NG/ML N 0-3.4 Creatinine August 24, 2013 7:14am 0.7 MG/DL N 0.7-1.2 Eosinophils # (Auto) August 22, 2013 5:28pm 0.1 T/MM3 N 0-0.5 Eosinophils (%) (Auto) August 22, 2013 5:28pm 1.5 % N 0-4 Free Thyroxine August 22, 2013 5:28pm 1.27 NG/DL N 0.78-2.19 Globulin August 22, 2013 5:28pm 2.8 G/DL N 2.4-3.6 Glomerular Filtration Rate Calc August 24, 2013 7:14am 80 - Glucose Level August 24, 2013 7:14am 117 MG/DL H 65-110 HDL Cholesterol Direct August 16, 2013 12:55am 64 MG/DL H 40-60 Hematocrit August 22, 2013 5:28pm 43.1 % N 36-46 Hemoglobin August 22, 2013 5:28pm 14.0 GM/DL N 12-16 Icterus Index August 24, 2013 7:14am < 2 0-7 Immature Granulocyte # (Auto) August 22, 2013 5:28pm 0.03 T/MM3 N 0.00- 0.03 Immature Granulocyte % (Auto) August 22, 2013 5:28pm 0.4 % N 0.0-0.5 LDL Cholesterol, Calculated August 16, 2013 12:55am 100.0 N 66-159 Lab Scanned Report May 22, 2010 12:27pm LAB RESULTS - SCANNED [id number] - Lymphocytes # (Auto) August 22, 2013 5:28pm 2.3 T/MM3 N 1-4.8 Lymphocytes (%) (Auto) August 22, 2013 5:28pm 30.0 % N 23-45 Magnesium Level August 24, 2013 7:14am 1.8 MG/DL N 1.6-2.3 Mean Corpuscular Hemoglobin August 22, 2013 5:28pm 32.6 UUG N 26-34 Mean Corpuscular Hemoglobin Concent August 22, 2013 5:28pm 32.5 GM/DL N 31 -37 Mean Corpuscular Volume August 22, 2013 5:28pm 100.2 UM3 H 80-100 Mean Platelet Volume August 22, 2013 5:28pm 10.1 UM3 N 9.4-12.4 Monocytes # (Auto) August 22, 2013 5:28pm 0.8 T/MM3 N 0-0.8 Monocytes (%) (Auto) August 22, 2013 5:28pm 10.7 % H 0-9.0 Neutrophils # (Auto) August 22, 2013 5:28pm 4.3 T/MM3 N 1.8-7.7 Neutrophils (%) (Auto) August 22, 2013 5:28pm 56.7 % N 33-66 Platelet Count August 22, 2013 5:28pm 214 T/MM3 N 130-400 Potassium Level August 24, 2013 7:14am 3.6 MEQ/L N 3.6-5 RDW Standard Deviation August 22, 2013 5:28pm 48.1 FL N 36.9-50.2 Red Blood Count August 22, 2013 5:28pm 4.30 M/MM3 N 4.00-5.20 Sodium Level August 24, 2013 7:14am 140 MEQ/L N 134-144 Thyroid Stimulating Hormone (TSH) August 22, 2013 5:28pm 1.13 MIU/L N 0.47 -4.68 Total Bilirubin August 22, 2013 5:28pm 0.30 MG/DL N 0.20-1.30 Total Creatine Kinase August 16, 2013 8:55am 23 U/L L 30-135 Total Protein August 22, 2013 5:28pm 6.4 G/DL N 6.3-8.2 Triglycerides Level August 16, 2013 12:55am 85 MG/DL N 35-135 Troponin I August 16, 2013 8:55am < 0.012 ng/ml 0-0.12 Turbidity August 24, 2013 7:14am < 20 0-20 VLDL Cholesterol August 16, 2013 12:55am 17.0 MG/DL N 0-28 White Blood Count August 22, 2013 5:28pm 7.5 T/MM3 N 4.5-11.0 Name: DUSTIN CARTER Unit #: [id number] : 1930 Sex: F DISCHARGE SUMMARY Admit Date: 08/15/13 Report #: [id number] General Date Date DATE: 08/17/13 TIME: 16:35 Attending Physician Pablo Enriquez MD Admitting Physician Pablo Enriquez MD Consulting Physician Admitting Diagnosis (1) Atrial fibrillation with RVR (2) Hypertension (3) Dyspnea (4) Hypothyroidism Discharge Diagnosis (1) New Onset Atrial fibrillation with RVR - now SR post DCCV (2) Hypertension - controlled (3) Dyspnea - improved (4) Hypothyroidism - chronic Procedures FARZANEH with DCCV. Pt converted post 360 J of synchronized cardioversion. Started on Sotalol. Laboratory Laboratory Laboratory Tests Test 08/17/13 04:45 Turbidity < 20 Sodium Level 139 MEQ/L Potassium Level 4.3 MEQ/L Chloride Level 105 MEQ/L Carbon Dioxide Level 27 MEQ/L Anion Gap 7 MEQ/L Blood Urea Nitrogen 20.0 MG/DL Creatinine 0.7 MG/DL Glomerular Filtration Rate 80 Calc BUN/Creatinine Ratio 29 RATIO Glucose Level 91 MG/DL Calculated Osmolality 271 MOSM/KG Calcium Level 8.8 MG/DL Magnesium Level 1.8 MG/DL Icterus Index < 2 Chemistry Specimen Hemolysis 16 History of Present Illness The patient is a known patient to us that has not been seen in the office since 2011. She presented to her PCP's office today for increased weakness and SOA. She states that yesterday she had a symptom of a "hard" heartbeat, but then it went away. Today, she was trying to eat with friends and was out and about when she noticed she was very weak and SOA. She was feeling well last week and the past few days until today. The patient states her SOa is not severe at rest, but with activity, it worsens. She deneis CP or palpitations. Her PCP did na ECG revealing Atrial Fibrillation with RVR. She was transferred to [facility] for cardiac evaluation. They performed lab, urine and a CXR. The patient was transferred to [facility] for further evaluation and treatment of Afib with RVR. We will observe in ICU and initiate treatment. Hospital Course The patient presented in Afib and was place in the CCU for rate control with a Cardizem gtt and Lovenox 1mg/kg for anticoagulation. Her labs, ECG and CXR were preformed at her PCP's office prior to transfer. She successfully cardioverted to SR post a FARZANEH revealing no intracardiac thrombus. The patient was placed on Sotalol for rhythm control and Xarelto for anticoagulation and stroke prevention. Her ECG on the date of D/C revealed a stable QTC interval and she was tolerating the medication well. [facility] understands the need for further work-up on an outpatient basis. She is stable on the date of D/C without complaint. Problems: (1) Atrial fibrillation with RVR Status: Resolved Assessment & Plan: Converted to SR (2) Hypertension Status: Acute Assessment & Plan: Improved. (3) Dyspnea Status: Acute Assessment & Plan: Improved. Stress testing as an outpatient. (4) Hypothyroidism Status: Chronic DVT Prophylaxis: Lovenox GI Prophylaxis: Protonix Reason no ASA at DC?: Further opinion sought (Xarelto) Code Status Full Code Home Meds Active Scripts Rivaroxaban (Xarelto)20 Mg Xsrwmx21 Mg PO WS #30 TAB Ref 3 Prov:JAMAAL COLMENARES P.A. 08/17/13 Sotalol Hcl (Betapace Af)80 Mg Jjqebb47 Mg PO ACBID #60 TAB Ref 3 Prov:JAMAAL COLMENARES 08/17/13 Reported Medications Prednisone 5 Mg Tablet5 Mg PO DAILY 08/15/13 Enalapril Maleate 5 Mg Tablet5 Mg PO DAILY 08/15/13 Acetaminophen (Tylenol Extra Strength)500 Mg Jrlcwr487 Mg PO TID 09/14/11 Pantoprazole (Protonix)40 Mg Tablet.dr40 Mg PO DAILY 09/14/11 Levothyroxine Sodium (Synthroid)75 Mcg Vqhtoq66 Mcg PO DAILY 10/04/08 Discontinued Reported Medications Verapamil Hcl (Verapamil Er)120 Mg Tablet.er120 Mg PO DAILY 09/14/11 Duloxetine Hcl (Cymbalta)60 Mg Capsule.dr60 Mg PO DAILY 10/04/08 Discharge Disposition Home in good condition. Copies To 1: PABLO ENRIQUEZ MD, RACHEL M P.A. Aug 17, 2013 16:38 Procedures No known history of procedures. Encounters Encounter Location Date/Time Discharged Inpatient [facility] 08/22/13 4:39pm Discharged Inpatient [facility] 08/15/13 4:07pm Recent Diagnosis Atrial fibrillation with RVR Hypertension
--- OUTSIDE RECORDS SUMMARY | 2016-05-17 16:19 | XMS REPORT ---
[facility] Address Unknown Phone Unavailable Care Team Providers Care Portable Sawmill Operator Name Role Phone Dr. CHASIDY COLLAZO Primary Care Physician Unavailable Allergies Allergy Description Allergy Type IMIPRAMINE Drug allergy (disorder) LODINE Drug allergy (disorder) FLU VACCINE Drug allergy (disorder) EGG ALBUMIN Drug allergy (disorder) Procedures Procedure Type Procedure Description Date Physicians No codified procedures found for this patient. Results No Procedures Performed Observation Test Name Observation Test Result Observation Test Units Observation Test Date Observation Test Time No result observations. History of Immunizations Immunization Date no immunization entries Plan of Care Item Text No plan of care items. Procedure Date/Time/Initials Critical? Status No plan of care procedures. Medication List Medication Dose Units Frequency Start Date/Time Status none Problem List Problem Entered Date Resolved Date No known problems
--- OUTSIDE RECORDS SUMMARY | 2016-05-17 16:19 | XMS REPORT | Continuity of Care Document ---
Author Author [facility] Organization [facility] Address Unknown Phone Unavailable Support Name Relationship Address Phone JOHNATHAN LONGORIA MD Caregiver [facility] [address] [place] [address] , [address] [address] EMMACOLEEN (DAUGHTER IN LAW) Next Of Kin [address] [place], [place] [address] Insurance Providers Payer Name Policy Number Subscriber Name Relationship Medicare [id number] Dustin Carter 18 Self Other A Insurance [id number] Dustin Carter 18 Self Advance Directives Directive Response Recorded Date/Time Advanced Directives Type Living Will DPOA for Healthcare 08/15/13 6:50pm Ordered Resuscitation Status Full Code 08/15/13 5:52pm Resuscitation Documents on File No 08/15/13 6:50pm Chief Complaint and Reason for Visit Chief Complaint AFIB WITH RVR Reason for Visit Atrial fibrillation with RVR Hypertension Dyspnea Hypothyroidism Problems Medical Problems Problem Onset Date Status Atrial fibrillation with RVR Unknown Active Hypertension Unknown Active Dyspnea Unknown Active Hypothyroidism Unknown Active Medications Medication Dose Route Sig Days/Qty Instructions Order Date Discontinued Date Status Duloxetine Hcl 60 Mg PO DAILY 10/04/08 08/15/13 Discontinued Prednisone 7 Mg PO DAILY 10/04/08 09/14/11 Discontinued Propranolol Hcl 120 Mg PO DAILY 10/04/08 06/11/10 Discontinued Levothyroxine Sodium 88 Mcg PO DAILY 10/04/08 Active Nebivolol Hcl 10 Mg PO DAILY 06/11/10 09/14/11 Discontinued Acetaminophen 1,000 Mg PO THREE TIMES A DAY 06/12/10 09/14/11 Discontinued Verapamil Hcl 120 Mg PO DAILY 09/14/11 08/17/13 Discontinued Pantoprazole Sodium 40 Mg PO DAILY 09/14/11 Active Acetaminophen 500 Mg PO THREE TIMES A DAY 09/14/11 Active Enalapril Maleate 5 Mg PO DAILY 08/15/13 Active Prednisone 5 Mg PO DAILY 07/08/14 Active Sotalol Hcl 40 Mg PO BEFORE MEALS TWICE A DAY 60 Qty 08/17/13 Active Rivaroxaban 20 Mg PO GIVE WITH SUPPER 30 Qty 08/17/13 Active Social History Social History Problem Response Recorded Date/Time Smoking Status Never smoker 08/15/2013 6:51pm Chewing Tobacco Status No 04/25/2012 11:50am Hx Substance Use No 04/25/2012 11:50am Hx Alcohol Use No 04/25/2012 11:50am Has the pt used tobacco in the last 12 months No 08/15/2013 6:51pm Query Response Start Date Stop Date Smoking Status Never smoker Hospital Discharge Instructions Instructions: Care Instructions: Reason for Hospitalization: atrial fibrillation with rapid ventricular response, synchronized cardio. I was in the hospital because (patient own words): shortness of air Discharge Diet: Heart Healthy Discharge Activity: No restrictions Follow Up Appointments: Follow-up with Dr. Longoria in 2 weeks. Call [phone] to schedule. Follow-up with your family doctor in 1 week. Patient Instructions: Call or return if worsening palpitations, weakness or chest pain. Condition at time of discharge: Good Care Plan Discharge Patient: Goal: Increase cardio excercise Patient Instructions: see patient instructions Condition at time of discharge: Good Care Plan Discharge Patient: Goal: Maximum functional status Patient Instructions: see patient instructions Plan of Care Discharge Date 08/17/13 11:45am Disposition 01 DISCHARGED HOME, SELF-CARE Instructions/Education Provided Getting to the Heart of a Healthful Diet DI for Cardioversion Prescriptions See Medications Section Functional Status Query Response Date Recorded Physical Hygiene Self August 17, 2013 11:01am Disabilities Visual August 17, 2013 11:01am Devices Used Glasses August 17, 2013 11:01am Dressing Self August 17, 2013 11:01am Ambulation Self August 17, 2013 11:01am Diet Self August 17, 2013 11:01am Mental Status Alert Oriented August 17, 2013 11:01am Disabilities Visual August 17, 2013 11:01am Devices Used Glasses August 17, 2013 11:01am Physical Hygiene Self August 17, 2013 11:01am Dressing Self August 17, 2013 11:01am Ambulation Self August 17, 2013 11:01am Diet Self August 17, 2013 11:01am Allergies, Adverse Reactions, Alerts Allergen Type Severity Reaction Status Last Updated Influenza Virus Vaccine Allergy Mild ITCH Active 10/03/08 Immunizations Name Given Type Hx Influenza Vaccination Y allergic to vaccine Historical Hx Pneumococcal Vaccination Y probably 10 years ago Historical Hx Influenza Vaccination Y allergic to vaccine Historical Vital Signs Acute Vital Signs Vital Response Date/Time Temperature (Fahrenheit) 97.7 deg F (96.8 - 99.1) Temperature (Calculated Celsius) 36.37618 degrees C (36.0 - 37.3) Temperature Source Temporal Pulse Rate (adult) 68 bpm (60 - 100) Respiratory Rate 20 breaths/min (10 - 20) Height 5 ft 6 in Weight 175 lb Body Mass Index 28.0 kg/m^2 Results Test Source Date Result Interp. Ref. Range Comments Anion Gap August 17, 2013 4:45am 7 MEQ/L N 5-15 BUN/Creatinine Ratio August 17, 2013 4:45am 29 RATIO H 6-26 Blood Urea Nitrogen August 17, 2013 4:45am 20.0 MG/DL H 7-17 Calcium Level August 17, 2013 4:45am 8.8 MG/DL N 8.4-10.2 Calculated Osmolality August 17, 2013 4:45am 271 MOSM/KG N 261-280 Carbon Dioxide Level August 17, 2013 4:45am 27 MEQ/L N 22-30 Chemistry Specimen Hemolysis August 17, 2013 4:45am 16 N 0-25 0-25: No Hemolysis.26-70: Slight Hemolysis - [...] Phenytoin. Recommend specimen recollection. Chloride Level August 17, 2013 4:45am 105 MEQ/L N 98-107 Cholesterol Level August 16, 2013 12:55am 181 MG/DL N 132-199 Cholesterol/HDL Ratio August 16, 2013 12:55am 2.8 RATIO N 0-4.0 Creatine Kinase MB August 16, 2013 8:55am 0.5 NG/ML N 0-3.4 Creatinine August 17, 2013 4:45am 0.7 MG/DL N 0.7-1.2 Glomerular Filtration Rate Calc August 17, 2013 4:45am 80 - Glucose Level August 17, 2013 4:45am 91 MG/DL N 65-110 HDL Cholesterol Direct August 16, 2013 12:55am 64 MG/DL H 40-60 Icterus Index August 17, 2013 4:45am < 2 0-7 LDL Cholesterol, Calculated August 16, 2013 12:55am 100.0 N 66-159 Lab Scanned Report May 22, 2010 12:27pm LAB RESULTS - SCANNED [id number] - Magnesium Level August 17, 2013 4:45am 1.8 MG/DL N 1.6-2.3 Potassium Level August 17, 2013 4:45am 4.3 MEQ/L N 3.6-5 Sodium Level August 17, 2013 4:45am 139 MEQ/L N 134-144 Total Creatine Kinase August 16, 2013 8:55am 23 U/L L 30-135 Triglycerides Level August 16, 2013 12:55am 85 MG/DL N 35-135 Troponin I August 16, 2013 8:55am < 0.012 ng/ml 0-0.12 Turbidity August 17, 2013 4:45am < 20 0-20 VLDL Cholesterol August 16, 2013 12:55am 17.0 MG/DL N 0-28 Procedures No known history of procedures. Encounters Encounter Location Date/Time Discharged Inpatient [facility] 08/15/13 4:07pm Recent Diagnosis Atrial fibrillation with RVR Hypertension Dyspnea Hypothyroidism
--- OUTSIDE RECORDS SUMMARY | 2016-05-17 16:19 | XMS REPORT | Summary of Care ---
Author Author Angelo Britt M.D. Unknown Address [address] [place] [address] [place] [address] Phone Unavailable Care Team Providers Care Cook Sauce Name Role Phone Angelo Britt M.D. Unavailable [...] Body Surface Area Calculated 1.93 m2 Status: 21-Nov-2014 11:48 BP Systolic 147 mm[Hg] Status: [...]
--- OUTSIDE RECORDS SUMMARY | 2016-05-17 16:19 | XMS REPORT | CCD ---
Author Author YVONNE GARCIA Organization Unknown Address [address] [place], [place] [id number] Phone 0 Care Team Providers Care Claims Correspondence Clerk Name Role Phone THUAN VAZ Attending Physician [...] Start Date Resolved Date Status Rapid afib 888453006 Active Acute CHF 57887564 Active Chronic UTI 185512866 Active Results Unknown or Not Available. Active Medications Medication Code Dose Units Frequency Route Modification Start Date/Time Levothyroxine 0.088MG Oral Tablet [id number] 0.088 MILLIGRAMS DAILY ORAL 09/24/2013 08:58 Pantoprazole Sodium 40MG Oral Tablet, Enteric Coated [id number] 40 MILLIGRAMS DAILY ORAL 09/24/2013 08:58 Potassium Chloride 20MEQ Oral Tablet, Extended Release [id number] 20 MEQ DAILY ORAL 09/24/2013 08:58 Xarelto 20MG Oral Tablet [id number] 20 MILLIGRAMS DAILY ORAL 09/24/2013 08:58 Medications Administered During Visit Unknown or Not Available. Encounters Encounter Diagnosis Diagnosis Code Start Date URIN TRACT INFECTION NOS 5990 07/26/2014 Social History Smoking Status Code Start Date End Date Never smoker [id number] Patient Decision Aids Unknown or Not Available. Discharge Instructions You were admitted to [facility] on 07/26/2014 with a principal diagnosis of URIN TRACT INFECTION NOS. You were discharged from [facility] on 07/26/2014. Should you have any questions prior to [...]
--- OUTSIDE RECORDS SUMMARY | 2016-05-17 16:19 | XMS REPORT | CCD ---
Author Author YVONNE GARCIA Organization Unknown Address [address] [facility] [place] [id number] Phone 0 Care Team Providers Care Hand Striper Name Role Phone TAMI STALLWORTH Attending Physician 0 Vital Signs Unknown or Not Available. Allergies Allergy Code Allergy Type Reaction Status EGG ALBUMIN 0 Drug allergy Active FLU VACCINE 0 Drug allergy Active LODINE 306953 Drug allergy Active IMIPRAMINE 56 Drug allergy Active Procedures Unknown or Not Available. History of Immunizations Unknown or Not Available. Problems Problem Code Start Date Resolved Date Status Rapid afib 459466867 Active Acute CHF 12278702 Active Chronic UTI 415076029 Active Results Unknown or Not Available. Medications Medication Code Dose Units Frequency Route Modification Start Date/Time Stop Date/ Time Potassium Chloride 20MEQ Oral Tablet, Extended Release 410152 20 MEQ DAILY ORAL 09/24/2013 08:58 Pantoprazole Sodium 40MG Oral Tablet, Enteric Coated 021997 40 MILLIGRAMS DAILY ORAL 09/24/2013 08:58 Flecainide Acetate 50MG Oral Tablet 880478 50 MILLIGRAMS TWICE A DAY ORAL 09/24/2013 08:58 Levothyroxine 0.088MG Oral Tablet 987803 0.088 MILLIGRAMS DAILY ORAL 09/24/2013 08:58 Xarelto 20MG Oral Tablet 2358125 20 MILLIGRAMS DAILY ORAL 09/24/2013 08:58 Medications Administered Unknown or Not Available. Encounters Unknown or Not Available. Social History Smoking Status Code Start Date End Date Never smoker [id number] Patient Decision Aids Unknown or Not Available. Discharge Instructions You were admitted to [facility] on 11/08/2013. Should you have any questions prior to discharge, please contact a member of your healthcare team. If you have left the hospital and have any questions, please contact your primary care physician. Chief Complaint and Reason For Visit Chief Complaint Date of Onset CARDIAC REHAB Function Status Unknown or Not Available. Plan of Care Unknown or Not Available. Referral/Transition of Care Unknown or Not Available.
--- OUTSIDE RECORDS SUMMARY | 2016-05-17 16:19 | XMS REPORT | CCD ---
Author Author YVONNE GARCIA Organization Unknown Address [address] [facility] [place] [id number] Phone 0 Care Team Providers Care Rocket Test Fire Worker Name Role Phone TAMI STALLWORTH Attending Physician [...] Start Date Resolved Date Status Rapid afib 755387587 Active Acute CHF 19833917 Active Chronic UTI 539841410 Active Results Unknown or Not Available. Active Medications Medication Code Dose Units Frequency Route Modification Start Date/Time Flecainide Acetate 50MG Oral Tablet 224372 50 MILLIGRAMS TWICE A DAY ORAL 09/24/2013 08:58 Levothyroxine 0.088MG Oral Tablet 006533 0.088 MILLIGRAMS DAILY ORAL 09/24/2013 08:58 Pantoprazole Sodium 40MG Oral Tablet, Enteric Coated 131837 40 MILLIGRAMS DAILY ORAL 09/24/2013 08:58 Potassium Chloride 20MEQ Oral Tablet, Extended Release 595313 20 MEQ DAILY ORAL 09/24/2013 08:58 Xarelto 20MG Oral Tablet 0371712 20 MILLIGRAMS DAILY ORAL 09/24/2013 08:58 Medications Administered During Visit Unknown or Not Available. Encounters Unknown or Not Available. Social History Smoking Status Code Start Date End Date Never smoker [id number] Patient Decision Aids Unknown or Not Available. Discharge Instructions You were admitted to [facility] on 03/05/2014. You were discharged from [facility] on 03/05/2014. Should you have any questions [...]
[2016-05-17] MEDS ORDERED: AMIODARONE 150 MG in NORMAL SALINE 100 ML IV ONE (16:27)
[2016-05-17] MEDS ORDERED: AMIODARONE 900 MG in NORMAL SALINE 500 ML IV SCH (16:27)
[2016-05-17] MEDS ORDERED: PRED5TAB PO (16:41)
[2016-05-17] MEDS ORDERED: NAPR500T6 PO (16:41)
[2016-05-17] MEDS ORDERED: FURO20TA4 PO (16:41)
[2016-05-17] MEDS ORDERED: POTA10TA14 PO (16:41)
[2016-05-17] MEDS ORDERED: NAPR220T PO (16:47)
[2016-05-17] MEDS ORDERED: LISI-625 PO (16:47)
[2016-05-17] MEDS ORDERED: METOPROLOL 5mg/5ml INJECTION IV ONE (17:00)
--- NOTE | 2016-05-17 18:14 | NUR ---
Status While reconciling medications pt reports that "I stopped taking Xarelto a long time ago because I didn't like the bruises. I also only take 1/2 a lasix when I feel like it because it makes me pee too much. I stopped Flecinide on Wednesday (05/13) per Dr. Longoria, but Tuesday 05/16 I took one in the morning when I started to feel bad" Metoprolol has been given per orders as well as amio bolus. Gtt is currently infusing per orders. Pt's HR has come down to low 100s, currently 102 BPM. Family at bedside. Denies pain. Will continue to monitor.
--- NOTE | 2016-05-17 18:45 | NUR ---
BP This evening, pt's BP elevated at 165/108. Cuff located on lower right forearm. RN moved cuff to upper right arm and obtained BP of 190/112. Per Daylin Jeronimo, bp checked on upper left arm. BP of 233/99. New order received to apply 1" Nitro paste. Administered. Due to IV location on left AC, RN placed BP cuff back to upper right arm. Will continue to monitor closely.
[2016-05-17] MEDS ORDERED: NITROGLYCERIN 2% OINTMENT 1 G PACKET TOP ONE (19:15)
[2016-05-17 19:35] LABS: THYROID STIM HORMONE-TSH 2.14 MIU/L (0.47-4.68)
--- NOTE | 2016-05-17 19:59 | HPPDOC ---
HPI - Adult Date DATE: 05/17/16 TIME: 19:57 General Date of Admission Date of Admission: May 17, 2016 at 16:13 Chief Complaint: Chest pain History of Present Illness This is an 85 year old patient known to Dr. Longoria with a history of A-fib, HTN, and hypothyroidism. Never had a heart cath. She saw Dr. Longoria in office visit on Wednesday. She was told her stress test she had last week was ok. 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 She had been on flecainide since 08/2013 (last time she was in [facility] for A-fib). and it made her feel bad every time she took. it. and Wed she felt good because she did not take the flecainide. She has not taken Xarelto for over 1 yr due to bruising and bleeding issues when she would bump herself. In addition she knew someone who had been on a blood thinner and hit his head and had a severe hemorrhagic stroke from which he never recovered. also the Xarelto was $400.00. Yesterday, she did not feel well, no other defining symptoms. She took a flecainide. Today, when she awoke about 0600, she developed chest tightness radiating into her back and jaw joselito. She is always SOB, but it was worse, especially with ambulation. Denies diaphoresis or nausea. Did not feel palpitations. She resides in [facility] and told an aide who checked her BP and HR. Her HR was fast and RN was notified and EMS notified and she received Ntg x2 and ASA. In [facility]: ECG: A-fib, HR 136, ST T wave abnormality - not ischemic. Trop 0.03 (neg), CKMB 2.1, CMP and CBC unremarkable. CXR: heart size normal, lungs clear. COPD, aorta is tortuous. She was given Cardizem bolus and Lovenox 1mg/kg which slowed her HR from 130's to [address] Longoria was notified and she was transported to [facility]. On arrival to [facility] ICU, she was in A-fib, HR 120's and BP 170/104. Gave her metoprolol which slowed her HR to the 110's. Her BP cont to be elevated and NTG paste placed on pt which brought her SBP 140's. Amiodarone bolus and gtt initiated. About 2119 she converted to SR. Currently HR 50's and SBP 120's. 08/2013 FARZANEH and DCCV: EF 60%, mild MR, mild TR. she was successfully DCCV from A- fib into SR. Past Medical History Past Medical History Metabolic: hypertension, hypothyroidism Cardiac: A-fib, other, DENIES: CAD Respiratory: pulmonary hypertension Surgical History General: gallbladder, other, tonsils Joint: foot Current Medications Home Meds Active Scripts Flecainide Acetate (Tambocor) 50 Mg Tablet, 50 MG PO BID, #60 TAB 3 Refills Prov:JAMAAL COLMENARES P.A. 08/24/13 Reported Medications Lisinopril (Lisinopril) 5 Mg Tablet, 5 MG PO DAILY for HYPERTENSION, TAB 05/17/16 Naproxen Sodium (Naproxen 220mg) 220 Mg Tablet, 220 MG PO BIDWM, TAB 05/17/16 Prednisone (Prednisone) 5 Mg Tablet, 5 MG PO WB, TAB Take 1 tablet, by mouth, once a day with breakfast. 05/17/16 Furosemide (Furosemide) 20 Mg Tablet, 0.5 TAB PO DAILY, TAB 05/17/16 Potassium Chloride (Potassium Chloride) 10 Meq Tablet.er, 10 MEQ PO WB, TAB Take 1 tablet, by mouth, daily with breakfast 05/17/16 Levothyroxine Sodium (Synthroid) 88 Mcg Tablet, 88 MCG PO DAILY 08/22/13 Pantoprazole (Protonix) 40 Mg Tablet.dr, 40 MG PO DAILY 09/14/11 Discontinued Reported Medications Naproxen (Naproxen) 500 Mg Tablet.dr, 1 TAB PO BID, #60 TAB 2 Refills 05/17/16 Acetaminophen (Tylenol Extra Strength) 500 Mg Tablet, 1000 MG PO TID 09/14/11 Allergies: Coded Allergies: Influenza Virus Vaccines (Verified Allergy, Mild, ITCH, 05/17/16) egg (Verified Allergy, Unknown, 05/17/16) milk (Verified Allergy, Unknown, 05/17/16) Family History FOUND: a-fib, diabetes Vaccines Both Social History Smoking Status: Never smoker Substance Use Type: does not use Alcohol Intake: none Marital Status: Housing: assisted living facility Household Members: none Current Occupational Status: retired Advance Directives: Yes DPOA for Healthcare Only ([employer] and [employer]) Review of Systems Constitutional: REPORTS: fatigue, weakness, DENIES: chills, dizziness, fever Eyes Vision: DENIES: blurring ENMT Balance: DENIES: vertigo Mouth/Throat: DENIES: sore throat Cardiovascular chest pain, dyspnea on exertion, DENIES: orthopnea, paroxysmal nocturnal dysp Rhythm/Rate: irregular beat, palpitations, tachycardia Vascular: pedal edema Pulmonary Respiratory: dyspnea, DENIES: cough GI Upper Abdomen: DENIES: nausea, pain, vomiting Lower Abdomen: DENIES: blood in stool, constipation General: frequency, DENIES: dysuria, hematuria Integumentary Skin: DENIES: rash Neurological General: DENIES: fainting, memory disturbances, syncope Psychiatric Psychiatric: DENIES: anxiety, depression, memory impairment Hematologic/Lymphatic easy bruising (when on anticoagulation. ) Physical Exam General General Nourishment: well nourished, well developed General Body Habitus: well groomed Vital Signs Vital Signs Date Time Temp Pulse Resp B/P Pulse Ox O2 Delivery O2 Flow Rate FiO2 05/17/16 19:38 115 146/101 153/81 131/57 05/17/16 17:15 34 100 Room Air Height (Feet): 5 Height (Inches): 6.00 Telemetry Rhythm: Atrial Fibrillation, Atrial Flutter ENMT Brief: FOUND: hearing intact, mucosa moist, normal dentition Neck Brief: FOUND: midline, NOT FOUND: JVD, carotid bruits Respiratory Brief: FOUND: clear all manley, equal bilaterally Cardiovascular (brief) Cardiac Brief: FOUND: pedal edema (mild), NOT FOUND: murmur, regular rhythm ( irregular rate and rhythm) Capillary Refill: <2 sec, other (pedal pulses palpable. ) Abdomen (brief) Abdominal Brief: FOUND: BS normo active x4, soft, NOT FOUND: tender Musculoskeletal (brief) Musculoskeletal Brief: FOUND: extremities move equally, NOT FOUND: deformity Integumentary (brief) Integumentary Brief: FOUND: dry, pink, warm, NOT FOUND: rash Neurologic (brief) Neurological Brief: FOUND: motor, sensory, NOT FOUND: facial droop, ptosis Neurologic RN Documented GCS Eye Opening: Verbal: Motor: Total: Psychiatric (brief) FOUND: alert, attentive, normal affect, oriented Laboratory Laboratory Tests Labs from [facility]: Trop 0,03 (neg). CKMB 2.1, CPK 26, CKMB 8.1% (0-4) GLU 164, BUN 11, Cr 1.04, GFR 50, Na 143, K+ 3.9, Cl 106, CO2 28, Ca 9, AST 13, ALT 14, Alk Phos 103, Albumin 3.3. WBC 9.9, Hbg 14.3, Plts 315, Neutro 73, Pro BNP 855 ( 0-450). Test 05/17/16 18:50 Magnesium Level 2.0MG/DL Troponin I 0.098ng/ml Thyroid Stimulating Hormone (TSH) 2.14MIU/L Chemistry Specimen Hemolysis 26 EKG 05/17/2016 at 1328 ECG: A-fib, HR 136, ST T wave abnormality, QTc 493 05/17/2016 at 1631 ECG: A-flutter, HR 123, St abnormality in V3-V4, [id number] 05/17/2016 at 2123 ECG: SB, HR 53, low vlotage QRS, QTc 434 Radiology CXR: heart size normal, lungs clear. COPD, aorta is tortuous.degenerative changes in shoulders joselito. vertebroplasty at T6. Assessment & Plan Problems: (1) Atrial fibrillation with RVR Status: Acute Assessment & Plan: PAF: Received Cardizem in [facility] and Metoprolol in [facility] [place]. Started on Amiodarone and gtt. which converted her into SR on 05/17 at 2123. Her flecainide was stopped by Dr. Longoria on 05/13/2016. Records indicate she is intolerant of sotalol. Stopped Xarelto about 1 yr ago due to excessive bruising and bleeding when she bumped her arms and legs. She is concerned about possibility of hemorrhagic stroke. She states she understands the risks and would prefer the risk of stroke over the benefits of an anticoagulant. We are giving her lovenox 1mg/kg duering hospitalization. NPO for possible DCCV -or heart cath if trop bump she has converted to SR. I have explained A-fib and BB vs antiarrhythmic vs ablation with pt and family at bedside. (2) Hypertension Status: Chronic Qualifiers: Hypertension type: essential hypertension Qualified Codes: I10 - Essential (primary) hypertension Assessment & Plan: the Cardizem and metoprolol did not help her BP. Placed on Ntg paste x1 for quick results. Then she converted to SR and BP is good. cont lisinopril 5mg per home dose. (3) Hypothyroidism Status: Chronic Assessment & Plan: Cont. levothyroxine. TSH wnl. (4) Dyspnea Status: Chronic Qualifiers: Dyspnea type: shortness of breath Qualified Codes: R06.02 - Shortness of breath Assessment & Plan: She states if she does not receive her lasix she will have swelling her legs. But she gets dehydrated at times and becomes lightheaded and dizzy and will hold it. At times she does not take it due to convenience. She discussed this with Dr. Lindsey. I told her she may take it when she feels overloaded with fluid with symptoms of SOB and edema and ok to hold if she has symptoms of dehydration. Instructed her to weight herself every day to help her monitor if she is overloaded with fluid or not. She has been taking KCL only when she takes the Lasix which is most of the times. 08/2013 FARZANEH: EF 60%. Will check office records. If no echo has been done recently , will order an echo. Needs Heart failure education. 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 (5) Chest tightness Status: Resolved Assessment & Plan: Chest tightness resolved when HR improved. Recent nuclear stress test is negative. No CAD. Never had a heart cath. Cont lovenox. First trop is negative. Trend trop. ECG shows ST changes in A-fib. After converted to SR no ST changes. (6) Fibromyalgia Status: Chronic Assessment & Plan: Cont prednisone. Code Status Do Not Resuscitate Hospital Course Summary Disclaimer Dr. Longoria did not see pt on this day of admit. I have discussed labs, ECG, tele, meds, and pt discussion of antiarrhythmic therapy and he agress with plan of care. I discussed A-fib, and therapy with BB vs antiarrhythmic and anticoagulation vs ablation with pt and family at bedside. VERITO LAWRENCE APRN May 17, 2016 19:59
--- NOTE | 2016-05-17 20:30 | NUR ---
Oxygen Pt ready for bed. Placed on 2L O2/NC as she wears a chronic 2L at home during the night. Will monitor.
--- NOTE | 2016-05-17 21:09 | NUR ---
Converted Pt converted from afib/flutter to sinus suni HR 50's at this time. IRWIN Mckeon, present and notified. Addendum: 05/17/16 at 2134 by CHELO MOODY RN Per Daylin, pt to remain NPO after light breakfast in the a.m. just in case pt returns to afib/flutter. Amiodarone continues to infuse. EKG confirms sinus suni HR 50's.
[2016-05-17] MEDS ORDERED: POLYETHYL.GLYCOL 3350 PACKET 17gm PO PRN (22:45)
[2016-05-17] MEDS ORDERED: ZOLPIDEM 5 MG TABLET PO PRN (22:45)
[2016-05-17] MEDS ORDERED: MILK OF MAGNESIA 30 ML SUSP PO PRN (22:45)
[2016-05-17] MEDS ORDERED: ACETAMINOPHEN 325 MG TABLET PO PRN (22:45)
[2016-05-17] MEDS ORDERED: DiphenhydrAMINE 25 MG CAPSULE PO PRN (22:45)
[2016-05-17] MEDS ORDERED: ONDANSETRON 4mg/2ml INJECTION IM PRN (22:45)
[2016-05-18] VITALS (31 sets, daily range): BP systolic 108–202; BP diastolic 51–84; PULSE 50–71; RESP 14–53; TEMP 96.6–97.7; O2SAT 96–100
[2016-05-18] MEDS: ENOXAPARIN 150 MG/ML INJECTION SQ SCH ×2 (04:00→05:37)
--- NOTE | 2016-05-18 05:52 | NUR ---
Shift Summary Pt napped off and on during the night. C/o pain to lower legs, chronic. Assisted with repositioning for comfort. Pt converted from afib/flutter to sinus suni at 2108. States, "I feel much better now." Amiodarone continues to infuse to left AC IV. VSS. 2L O2/NC when asleep, chronic. Hypertensive at beginning of shift (see note), resolved. A&Ox3 and appropriate. Up to restroom several times with RN assist x1, walker (pt uses cane at home).
[2016-05-18] MEDS ORDERED: AMIODARONE 900 MG in NORMAL SALINE 500 ML IV SCH ×2 (06:45→08:45)
[2016-05-18 07:10] LABS: BASOPHILS # (AUTO) 0.1 T/MM3 (0-0.2); BASOPHILS % (AUTO) 0.6 % (0-2); EOSINOPHILS # (AUTO) 0.3 T/MM3 (0-0.5); HCT - HEMATOCRIT 39.2 % (36-46); HGB - HEMOGLOBIN 12.8 GM/DL (12-16); IMMATURE GRANULOCYTE # (AUTO) 0.04 T/MM3 (0.00-0.03); IMMATURE GRANULOCYTE % (AUTO) 0.4 % (0.0-0.5); LYMPHOCYTES # (AUTO) 2.1 T/MM3 (1-4.8); LYMPHOCYTES % (AUTO) 23.1 % (23-45); MEAN CORPUSCULAR HGB 31.1 UUG (26-34); MEAN CORPUSCULAR HGB CONC(MCHC 32.7 GM/DL (31-37); MEAN CORPUSCULAR VOLUME 95.4 UM3 (80-100); MEAN PLATELET VOLUME 10.4 UM3 (9.4-12.4); MONOCYTES % (AUTO) 11.2 % (0-9.0); NEUTROPHILS #(AUTO)-ABSOLUTE 5.5 T/MM3 (1.8-7.7); NEUTROPHILS % (AUTO) 61.7 % (33-66); RED BLOOD COUNT 4.11 M/MM3 (4.00-5.20)
[2016-05-18 07:21] LABS: ALBUMIN 3.2 G/DL (3.5-5.0); ALBUMIN/GLOBULIN RATIO 1.3 RATIO (1.1-2.2); ALKALINE PHOSPHATASE 77 U/L (38-126); ALT (SGPT) 24 U/L (9-52); ANION GAP 9 MEQ/L (5-15); AST (SGOT) 20 U/L (14-36); BUN/CREATININE RATIO 20 RATIO (6-26); CALCIUM 8.6 MG/DL (8.4-10.2); CHLORIDE 109 MEQ/L (98-107); CO2 - CARBON DIOXIDE 27 MEQ/L (22-30); CREATININE 0.8 MG/DL (0.7-1.2); GLOMERULAR FILTRATION RATE 68; GLUCOSE 87 MG/DL (65-110); POTASSIUM 4.1 MEQ/L (3.6-5); SODIUM 145 MEQ/L (134-144); TOTAL PROTEIN 5.7 G/DL (6.3-8.2)
[2016-05-18] MEDS ORDERED: POTASSIUM CHLORIDE 10 MEQ TABLET PO SCH (08:00)
[2016-05-18] MEDS ORDERED: ENOXAPARIN 100 MG/ML INJECTION SQ SCH (09:00)
[2016-05-18] MEDS: LEVOTHYROXINE 88 MCG PO SCH (09:38)
[2016-05-18] MEDS: PREDNISONE 5 MG PO SCH (09:38)
[2016-05-18] MEDS: POTASSIUM CHLORIDE 20 MEQ PO SCH (09:40)
[2016-05-18] MEDS: PANTOPRAZOLE 40 MG PO SCH (09:40)
[2016-05-18] MEDS: FUROSEMIDE 20 MG PO SCH (09:41)
--- NOTE | 2016-05-18 09:41 | NUR ---
ALYSE CM VISITED PT. CM EXPLAINED ROLE AND PROVIDED CONTACT INFORMATION. PT PLANS TO RETURN TO [facility] AT TIME OF D/C FROM [facility]. PT IS AWARE TO CONTACT CM IF NEEDS ARISE.
[2016-05-18] MEDS: LISINOPRIL 5 MG PO SCH (09:42)
[2016-05-18] MEDS: DOCUSATE SODIUM 100 MG CAPSULE PO SCH (09:43)
--- NOTE | 2016-05-18 13:07 | NUR ---
Activity: the patient is sitting up in the chair for the noon meal. She transfers easily with the use of a walker. Cardiac: the monitor shows SR/SB with rate 50-60. Amiodarone is infusing at 16.7 ml/hr.
--- NOTE | 2016-05-18 13:30 | PNPDOC ---
KALEE SEN FAN BLADE ALIGNER 05/18/16 1306: Subjective Date DATE: 05/18/16 TIME: 13:02 Subjective Whitney is seen in CCU in her room, she denies chest pain or palpitations, denies dyspnea. Objective Vital Signs Vital signs Vital Signs 05/18/16 05/18/16 05/18/16 05/18/16 02:01 03:00 04:00 04:46 Pulse 53 52 52 51 Resp 31 21 18 B/P 122/59 126/59 136/63 Pulse Ox 100 99 99 O2 Delivery Nasal Cannula Nasal Cannula Nasal Cannula O2 Flow Rate 2.00 2.00 2.00 05/18/16 05/18/16 05/18/16 05/18/16 05:00 06:01 07:00 08:00 Pulse 54 51 52 54 Resp 19 15 27 25 B/P 121/58 108/51 Pulse Ox 100 99 100 100 O2 Delivery Nasal Cannula Nasal Cannula Nasal Cannula Nasal Cannula O2 Flow Rate 2.00 2.00 2.00 2.00 05/18/16 05/18/16 05/18/16 05/18/16 08:49 09:00 09:00 10:01 Pulse 57 50 57 59 Resp 29 31 18 B/P 187/84 185/80 168/76 Pulse Ox 99 100 100 O2 Delivery Nasal Cannula Nasal Cannula Nasal Cannula O2 Flow Rate 2.00 2.00 05/18/16 05/18/16 11:01 11:47 Temp 97.1 Pulse 57 59 Resp 29 B/P 156/70 Pulse Ox 99 O2 Delivery Nasal Cannula Telemetry Rhythm: Atrial Fibrillation, Atrial Flutter Height (Feet): 5 Height (Inches): 6.00 Weight (Kilograms): 84.500 General Alert, Orientated x 3, Cooperative ENMT (Brief) mucosa moist Neck (Brief) NOT FOUND: carotid bruits Respiratory (Brief) clear all manley, equal bilaterally, NOT FOUND: rales, wheezes Cardiovascular (Brief) pedal edema, regular rate, regular rhythm Abdomen (Brief) BS normo active x4, soft Integumentary (Brief) dry, pink, warm Psychiatric (Brief) alert, attentive, oriented Laboratory Laboratory Laboratory Tests Test 05/17/16 18:50 05/18/16 01:00 05/18/16 06:51 Magnesium Level 2.0MG/DL Troponin I 0.098ng/ml 0.097ng/ml 0.074ng/ml Thyroid Stimulating Hormone (TSH) 2.14MIU/L Chemistry Specimen Hemolysis 26 24 35 White Blood Count 9.0T/MM3 Red Blood Count 4.11M/MM3 Hemoglobin 12.8GM/DL Hematocrit 39.2% Mean Corpuscular Volume 95.4UM3 Mean Corpuscular Hemoglobin 31.1UUG Mean Corpuscular Hemoglobin Concent 32.7GM/DL RDW Standard Deviation 49.3FL Platelet Count 231T/MM3 Mean Platelet Volume 10.4UM3 Immature Granulocyte % (Auto) 0.4% Neutrophils (%) (Auto) 61.7% Lymphocytes (%) (Auto) 23.1% Monocytes (%) (Auto) 11.2% Eosinophils (%) (Auto) 3.0% Basophils (%) (Auto) 0.6% Absolute Immature Granulocyte (auto 0.04T/MM3 Absolute Neutrophils (auto) 5.5T/MM3 Absolute Lymphocytes (auto) 2.1T/MM3 Absolute Monocytes (auto) 1.0T/MM3 Absolute Eosinophils (auto) 0.3T/MM3 Absolute Basophils (auto) 0.1T/MM3 Turbidity < 20 Sodium Level 145MEQ/L Potassium Level 4.1MEQ/L Chloride Level 109MEQ/L Carbon Dioxide Level 27MEQ/L Anion Gap 9MEQ/L Blood Urea Nitrogen 16.0MG/DL Creatinine 0.8MG/DL Glomerular Filtration Rate Calc 68 BUN/Creatinine Ratio 20RATIO Glucose Level 87MG/DL Calculated Osmolality 279MOSM/KG Calcium Level 8.6MG/DL Total Bilirubin 1.00MG/DL Icterus Index < 2 Aspartate Amino Transf (AST/SGOT) 20U/L Alanine Aminotransferase (ALT/SGPT) 24U/L Alkaline Phosphatase 77U/L Total Protein 5.7G/DL Albumin 3.2G/DL Globulin 2.5G/DL Albumin/Globulin Ratio 1.3RATIO Laboratory Tests 05/18/16 06:51 Laboratory Tests 05/18/16 06:51 Medications Current Medications Metoprolol Tartrate 5 mg 5 mg O ONCE IV Last administered on 05/17/16t 16:58; Start 05/17/16 at 17:00; Stop 05/18/16 at 06:34; Status DC Amiodarone HCl/ Sodium Chloride (Amiodarone/NS) 103 ml @ 600 mls/hr Q11M ONCE IV Last administered on 05/17/16 17:46; Start 05/17/16 at 16:27; Stop 05/18/16 at 06:39; Status DC Enoxaparin Sodium (Lovenox) 1 MG/KG Q12HR SQ Last administered on 05/18/16 05: 37; Start 05/18/16 at 04:00; Stop 05/18/16 at 06:37; Status DC Nitroglycerin (Nitro-Bid) 1 inch O ONCE TOP Last administered on 05/17/16 19: 04; Start 05/17/16 at 19:15; Stop 05/18/16 at 06:34; Status DC Furosemide (Lasix) 10 mg DAILY PO Last administered on 05/18/16 09:41; Start 05/18/16 at 09:00 Levothyroxine Sodium (Synthroid) 88 mcg ACB PO Last administered on 05/18/16 09:38; Start 05/18/16 at 07:30 Lisinopril (Prinivil) 5 mg DAILY PO Last administered on 05/18/16 09:42; Start 05/18/16 at 09:00 Naproxen Sodium (ALEVE 220 mg) 220 mg BIDWM PO ; Start 05/18/16 at 21:00 Pantoprazole Sodium (Protonix) 40 mg ACB PO Last administered on 05/18/16 09: 40; Start 05/18/16 at 07:40 Prednisone (PredniSONE) 5 mg WB PO Last administered on 05/18/16 09:38; Start 05/18/16 at 08:00 Ondansetron HCl (Zofran) 4 mg Q6H PRN IM NAUSEA &/OR VOMITING; Start 05/17/16 at 22:45 Acetaminophen (Tylenol Regular Strength) 650 mg Q5H PRN PO DISCOMFORT; Start at 22:45 Diphenhydramine HCl (Benadryl) 25 mg HS PRN PO ITCH; Start 05/17/16 at 22:45 Docusate Sodium (Colace) 100 mg DAILY PO ; Start 05/18/16 at 09:00 Polyethylene Glycol (Miralax) 17 g DAILY PRN PO ; Start 05/17/16 at 22:45 Magnesium Hydroxide (Mom) 30 ml DAILY PRN PO CONSTIPATION; Start 05/17/16 at 22: 45 Zolpidem Tartrate (AMBIEN 5mg) 5 mg HS PRN PO INSOMNIA; Start 05/17/16 at 22:45 Enoxaparin Sodium 83 mg 83 mg Q12HR SQ ; Start 05/18/16 at 09:00 Amiodarone HCl 900 mg/Sodium Chloride 518 ml @ 16 mls/hr Q24H IV ; Start at 06:45; Stop 05/18/16 at 08:34; Status DC Amiodarone HCl/ Sodium Chloride (Cordarone/NS) 500 ml @ 16.66 mls/ hr Q24H IV ; Start 05/18/16 at 08:45 Potassium Chloride (Kdur) 10 meq WB PO Last administered on 05/18/16t 09:40; Start 05/18/16 at 09:00 Assessment & Plan Problems: (1) Atrial fibrillation with RVR Status: Acute Assessment & Plan: PAF: Received Cardizem in [place] [facility] and Metoprolol in [facility] ICU. Started on Amiodarone and gtt. which converted her into SR on 05/17 at 3. Her flecainide was stopped by Dr. Enriquez on 05/13/2016. Records indicate she is intolerant of sotalol. Stopped Xarelto about 1 yr ago due to excessive bruising and bleeding when she bumped her arms and legs. She is concerned about possibility of hemorrhagic stroke. She states she understands the risks and would prefer the risk of stroke over the benefits of an anticoagulant. We are giving her lovenox 1mg/kg duering hospitalization. NPO for possible DCCV -or heart cath if trop bump she has converted to SR. (2) Hypertension Status: Chronic Qualifiers: Hypertension type: essential hypertension Qualified Codes: I10 - Essential (primary) hypertension Assessment & Plan: the Cardizem and metoprolol did not help her BP. Placed on Ntg paste x1 for quick results. Then she converted to SR and BP is good. cont lisinopril 5mg per home dose. (3) Hypothyroidism Status: Chronic Assessment & Plan: Cont. levothyroxine. TSH wnl. (4) Dyspnea Status: Chronic Qualifiers: Dyspnea type: shortness of breath Qualified Codes: R06.02 - Shortness of breath Assessment & Plan: She states if she does not receive her lasix she will have swelling her legs. But she gets dehydrated at times and becomes lightheaded and dizzy and will hold it. At times she does not take it due to convenience. She discussed this with Dr. Lindsey. I told her she may take it when she feels overloaded with fluid with symptoms of SOB and edema and ok to hold if she has symptoms of dehydration. Instructed her to weight herself every day to help her monitor if she is overloaded with fluid or not. She has been taking KCL only when she takes the Lasix which is most of the times. 08/2013 FARZANEH: EF 60%. Will check office records. If no echo has been done recently , will order an echo. Needs Heart failure education. 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 (5) Chest tightness Status: Resolved Assessment & Plan: Chest tightness resolved when HR improved. Recent nuclear stress test is negative. No CAD. Never had a heart cath. Cont lovenox. First trop is negative. Trend trop. ECG shows ST changes in A-fib. After converted to SR no ST changes. (6) Fibromyalgia Status: Chronic Assessment & Plan: Cont prednisone. Plan/Intensity of Service 05/17/16 PAF: Received Cardizem in [place] [facility] and Metoprolol in [facility] ICU. Started on Amiodarone and gtt. which converted her into SR on 05/17 at 2123. Her flecainide was stopped by Dr. Enriquez on 05/13/2016. Records indicate she is intolerant of sotalol. Stopped Xarelto about 1 yr ago due to excessive bruising and bleeding when she bumped her arms and legs. She is concerned about possibility of hemorrhagic stroke. She states she understands the risks and would prefer the risk of stroke over the benefits of an anticoagulant. We are giving her lovenox 1mg/kg duering hospitalization. NPO for possible DCCV -or heart cath if trop bump she has converted to SR. 05/18/16 Change IV amiodarone drip to 200mg po daily, continue to monitor telemetry with EKG in am. Start Eliquis 5mg po BID. May transfer out of CCU, home tomorrow JOHNATHAN ENRIQUEZ MD 05/20/16 1536: Assessment & Plan Plan/Intensity of Service After examining the patient I agree with the above assessment. I am involved in the formulation of the patient's plan of care. KALEE SEN APRN May 18, 2016 13:06 JOHNATHAN ENRIQUEZ MD May 20, 2016 15:36
[2016-05-18] MEDS: NAPROXEN 220 MG PO SCH (15:30)
--- NOTE | 2016-05-18 15:30 | NUR ---
Pain: Aleve is given for generalized discomfort.
--- NOTE | 2016-05-18 16:00 | NUR ---
Comfort: the patient appears to be asleep.
--- NOTE | 2016-05-18 18:00 | NUR ---
Amiodarone: IV is dc. PO amiodarone is started.
[2016-05-18] MEDS: AMIODARONE 200 MG TABLET PO SCH (18:13)
[2016-05-18] MEDS: APIXABAN 5 MG TABLET PO SCH (19:44)
--- NOTE | 2016-05-18 19:55 | NUR ---
Transfer Pt transferred to [facility] at this time via wheel chair. Accompanied by CCU RN and NT. Pt able to transfer self from to bed. NEIL Bean, receives pt and report. VSS. Denies pain and other discomforts. Belongings accompanied pt.
[2016-05-19] VITALS: BP 155/59; PULSE 61; RESP 22; TEMP 96.1; O2SAT 99
[2016-05-19 01:23] LABS: RISK FACTOR 3.4 RATIO (0-4.0)
[2016-05-19 03:45] VITALS: BP 158/83; PULSE 62; RESP 20; TEMP 96.8; O2SAT 99
--- NOTE | 2016-05-19 04:23 | NUR ---
Status Pt remains in sinus rhythm or sinus suni. Denies chest pain or discomfort. No new concerns at this time.
[2016-05-19] MEDS: PANTOPRAZOLE 40 MG PO SCH (05:31)
[2016-05-19] MEDS: LEVOTHYROXINE 88 MCG PO SCH (05:32)
[2016-05-19 05:38] LABS: HCT - HEMATOCRIT 37.6 % (36-46); HGB - HEMOGLOBIN 12.2 GM/DL (12-16); MEAN CORPUSCULAR HGB 30.7 UUG (26-34); MEAN CORPUSCULAR HGB CONC(MCHC 32.4 GM/DL (31-37); MEAN CORPUSCULAR VOLUME 94.5 UM3 (80-100); MEAN PLATELET VOLUME 10.3 UM3 (9.4-12.4); RED BLOOD COUNT 3.98 M/MM3 (4.00-5.20); WBC - WHITE BLOOD COUNT 9.8 T/MM3 (4.5-11.0)
[2016-05-19 05:49] LABS: ANION GAP 9 MEQ/L (5-15); BUN/CREATININE RATIO 17 RATIO (6-26); CALCIUM 8.7 MG/DL (8.4-10.2); CHLORIDE 108 MEQ/L (98-107); CO2 - CARBON DIOXIDE 27 MEQ/L (22-30); CREATININE 0.9 MG/DL (0.7-1.2); GLOMERULAR FILTRATION RATE 59; GLUCOSE 88 MG/DL (65-110); POTASSIUM 3.9 MEQ/L (3.6-5); SODIUM 144 MEQ/L (134-144)
[2016-05-19] MEDS: NAPROXEN 220 MG PO SCH (06:43)
--- NOTE | 2016-05-19 06:57 | NUR ---
Pt request Pt requested aleve early because of slight pain in toes. Given early as charted.
[2016-05-19 07:38] VITALS: PULSE 59; RESP 16; O2SAT 98
[2016-05-19 08:00] VITALS: PULSE 57; RESP 16
--- NOTE | 2016-05-19 08:00 | NUR ---
REPORT RECEIVED PATIENT IS ALERT AND ORIENTED. DENIES PAIN OR ANY OTHER CONCERNS AT THIS TIME. PATIENT IS AMBULATES IN ROOM WITH STEADY GAIT.NO CONCERNS NOTED.
[2016-05-19 08:03] VITALS: BP 148/78; PULSE 62; RESP 16; TEMP 95.3; O2SAT 100
[2016-05-19] MEDS: DOCUSATE SODIUM 100 MG CAPSULE PO SCH (08:57)
[2016-05-19] MEDS: POTASSIUM CHLORIDE 20 MEQ PO SCH (08:57)
[2016-05-19] MEDS: PREDNISONE 5 MG PO SCH (08:58)
[2016-05-19] MEDS: FUROSEMIDE 20 MG PO SCH (08:58)
[2016-05-19] MEDS: APIXABAN 5 MG TABLET PO SCH (08:58)
[2016-05-19] MEDS: LISINOPRIL 5 MG PO SCH (08:59)
[2016-05-19] MEDS: AMIODARONE 200 MG TABLET PO SCH (08:59)
--- NOTE | 2016-05-19 09:21 | NUR ---
CM CM IN TO VISIT PATIENT, SHE IS A&O. VERIFIED THAT PATIENT PLANS TO DISCHARGE BACK TO [facility]. SHE STATES THAT HER FAMILY IS PROBABLY GOING TO TRANSPORT HER BACK TO HOME BUT IF TRANSPORTATION NEEDED FROM [place] SHE WILL LET ME KNOW SO I CAN SET UP. SHE VOICED CONCERNS ABOUT COST OF ELIQUIS, I VISITED WITH KALEE SEN AND SHE IS AWARE OF THE CONCERN AND IS PROVIDING SAMPLES ON DISCHARGE. THIS CM CONTACT INFORMATION PROVIDED.
--- NOTE | 2016-05-19 10:06 | NUR ---
ALYSE CM CALLED AND SPOKE WITH NURSE AT [facility] (PHONE # [phone]) REGARDING PLANNED DISCHARGE FOR TODAY AND THAT FAMILY WILL TRANSPORT UNLESS NOTIFIED.
[2016-05-19] MEDS ORDERED: AMIO200T7 PO (11:26)
[2016-05-19] MEDS ORDERED: APIX5TAB PO (11:26)
--- NOTE | 2016-05-19 11:35 | DSPDOC ---
STANTON GALVEZ DIETARY CLERK 05/19/16 1133: General Date Date DATE: 05/19/16 TIME: 11:28 Attending Physician Pablo Enriquez MD Admitting Physician Pablo Enriquez MD Consulting Physician Admitting Diagnosis a-fib Discharge Diagnosis Afib with RVR HTN Hypothyroid Dyspnea chest discomfort fibromyalgia Laboratory Laboratory Tests Test 05/18/16 01:00 05/18/16 06:51 05/19/16 05:07 Troponin I 0.097ng/ml (0-0.12) 0.074ng/ml (0-0.12) Chemistry Specimen Hemolysis 24 (0-25) 35 (0-25) < 15 (0-25) White Blood Count 9.0T/MM3 (4.5-11.0) 9.8T/MM3 (4.5-11.0) Red Blood Count 4.11M/MM3 (4.00-5.20) 3.98M/MM3 (4.00-5.20) Hemoglobin 12.8GM/DL (12-16) 12.2GM/DL (12-16) Hematocrit 39.2% (36-46) 37.6% (36-46) Mean Corpuscular Volume 95.4UM3 (80-100) 94.5UM3 (80-100) Mean Corpuscular Hemoglobin 31.1UUG (26-34) 30.7UUG (26-34) Mean Corpuscular Hemoglobin Concent 32.7GM/DL (31-37) 32.4GM/DL (31-37) RDW Standard Deviation 49.3FL (36.9-50.2) 48.8FL (36.9-50.2) Platelet Count 231T/MM3 (130-400) 241T/MM3 (130-400) Mean Platelet Volume 10.4UM3 (9.4-12.4) 10.3UM3 (9.4-12.4) Immature Granulocyte % (Auto) 0.4% (0.0-0.5) Neutrophils (%) (Auto) 61.7% (33-66) Lymphocytes (%) (Auto) 23.1% (23-45) Monocytes (%) (Auto) 11.2% (0-9.0) Eosinophils (%) (Auto) 3.0% (0-4) Basophils (%) (Auto) 0.6% (0-2) Absolute Immature Granulocyte (auto 0.04T/MM3 (0.00-0.03) Absolute Neutrophils (auto) 5.5T/MM3 (1.8-7.7) Absolute Lymphocytes (auto) 2.1T/MM3 (1-4.8) Absolute Monocytes (auto) 1.0T/MM3 (0-0.8) Absolute Eosinophils (auto) 0.3T/MM3 (0-0.5) Absolute Basophils (auto) 0.1T/MM3 (0-0.2) Turbidity < 20 (0-20) < 20 (0-20) Sodium Level 145MEQ/L (134-144) 144MEQ/L (134-144) Potassium Level 4.1MEQ/L (3.6-5) 3.9MEQ/L (3.6-5) Chloride Level 109MEQ/L (98-107) 108MEQ/L (98-107) Carbon Dioxide Level 27MEQ/L (22-30) 27MEQ/L (22-30) Anion Gap 9MEQ/L (5-15) 9MEQ/L (5-15) Blood Urea Nitrogen 16.0MG/DL (7-17) 15.0MG/DL (7-17) Creatinine 0.8MG/DL (0.7-1.2) 0.9MG/DL (0.7-1.2) Glomerular Filtration Rate Calc 68 59 BUN/Creatinine Ratio 20RATIO (6-26) 17RATIO (6-26) Glucose Level 87MG/DL (65-110) 88MG/DL (65-110) Calculated Osmolality 279MOSM/KG (261-280) 277MOSM/KG (261-280) Calcium Level 8.6MG/DL (8.4-10.2) 8.7MG/DL (8.4-10.2) Total Bilirubin 1.00MG/DL (0.20-1.30) Icterus Index < 2 (0-7) < 2 (0-7) Aspartate Amino Transf (AST/SGOT) 20U/L (14-36) Alanine Aminotransferase (ALT/SGPT) 24U/L (9-52) Alkaline Phosphatase 77U/L (38-126) Total Protein 5.7G/DL (6.3-8.2) Albumin 3.2G/DL (3.5-5.0) Globulin 2.5G/DL (2.4-3.6) Albumin/Globulin Ratio 1.3RATIO (1.1-2.2) Triglycerides Level 110MG/DL (35-135) Cholesterol Level 171MG/DL (132-199) LDL Cholesterol, Calculated 99.0 (66-159) VLDL Cholesterol 22.0MG/DL (0-28) HDL Cholesterol Direct 50MG/DL (40-60) Cholesterol/HDL Ratio 3.4RATIO (0-4.0) History of Present Illness This is an 85 year old patient known to Dr. Enriquez with a history of A-fib, HTN, and hypothyroidism. Never had a heart cath. She saw Dr. Enriquez in office visit on Wednesday. She was told her stress test she had last week was ok. 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 She had been on flecainide since 08/2013 (last time she was in [facility] for A-fib). and it made her feel bad every time she took. it. and Wed she felt good because she did not take the flecainide. She has not taken Xarelto for over 1 yr due to bruising and bleeding issues when she would bump herself. In addition she knew someone who had been on a blood thinner and hit his head and had a severe hemorrhagic stroke from which he never recovered. also the Xarelto was $400.00. Yesterday, she did not feel well, no other defining symptoms. She took a flecainide. Today, when she awoke about 0600, she developed chest tightness radiating into her back and jaw joselito. She is always SOB, but it was worse, especially with ambulation. Denies diaphoresis or nausea. Did not feel palpitations. She resides in [facility] and told an aide who checked her BP and HR. Her HR was fast and RN was notified and EMS notified and she received Ntg x2 and ASA. In [place] ER: ECG: A-fib, HR 136, ST T wave abnormality - not ischemic. Trop 0.03 (neg), CKMB 2.1, CMP and CBC unremarkable. CXR: heart size normal, lungs clear. COPD, aorta is tortuous. She was given Cardizem bolus and Lovenox 1mg/kg which slowed her HR from 130's to [address] Enriquez was notified and she was transported to [facility] ICU. On arrival to [facility] ICU, she was in A-fib, HR 120's and BP 170/104. Gave her metoprolol which slowed her HR to the 110's. Her BP cont to be elevated and NTG paste placed on pt which brought her SBP 140's. Amiodarone bolus and gtt initiated. About 2119 she converted to SR. Currently HR 50's and SBP 120's. 08/2013 FARZANEH and DCCV: EF 60%, mild MR, mild TR. she was successfully DCCV from A- fib into SR. Objective Vital Signs Vital signs Vital Signs 05/19/16 05/19/16 05/19/16 05/19/16 00:00 03:45 07:38 08:00 Temp 96.1 96.8 Pulse 61 62 59 57 Resp 22 20 16 16 B/P 155/59 158/83 Pulse Ox 99 99 98 O2 Delivery Nasal Cannula Nasal Cannula Room Air O2 Flow Rate 2.00 2.00 05/19/16 08:03 Temp 95.3 Pulse 62 Resp 16 B/P 148/78 Pulse Ox 100 O2 Delivery Room Air Telemetry Rhythm: Sinus Rhythm, Atrial Fibrillation, Atrial Flutter Height (Feet): 5 Height (Inches): 6.00 Weight (Kilograms): 85.000 General Alert, Cooperative Eyes (Brief) EOMI ENMT (Brief) mucosa moist Respiratory (Brief) clear all manley, equal bilaterally, NOT FOUND: rales, wheezes Cardiovascular (Brief) pedal edema (trace), regular rate, regular rhythm, NOT FOUND: murmur Integumentary (Brief) dry, pink, warm Laboratory Laboratory Laboratory Tests Test 05/17/16 18:50 05/18/16 01:00 05/18/16 06:51 05/19/16 05:07 Magnesium Level 2.0MG/DL Troponin I 0.098ng/ml 0.097ng/ml 0.074ng/ml Thyroid Stimulating Hormone (TSH) 2.14MIU/L Chemistry Specimen Hemolysis 26 24 35 < 15 White Blood Count 9.0T/MM3 9.8T/MM3 Red Blood Count 4.11M/MM3 3.98M/MM3 Hemoglobin 12.8GM/DL 12.2GM/DL Hematocrit 39.2% 37.6% Mean Corpuscular Volume 95.4UM3 94.5UM3 Mean Corpuscular Hemoglobin 31.1UUG 30.7UUG Mean Corpuscular Hemoglobin Concent 32.7GM/DL 32.4GM/DL RDW Standard Deviation 49.3FL 48.8FL Platelet Count 231T/MM3 241T/MM3 Mean Platelet Volume 10.4UM3 10.3UM3 Immature Granulocyte % (Auto) 0.4% Neutrophils (%) (Auto) 61.7% Lymphocytes (%) (Auto) 23.1% Monocytes (%) (Auto) 11.2% Eosinophils (%) (Auto) 3.0% Basophils (%) (Auto) 0.6% Absolute Immature Granulocyte (auto 0.04T/MM3 Absolute Neutrophils (auto) 5.5T/MM3 Absolute Lymphocytes (auto) 2.1T/MM3 Absolute Monocytes (auto) 1.0T/MM3 Absolute Eosinophils (auto) 0.3T/MM3 Absolute Basophils (auto) 0.1T/MM3 Turbidity < 20 < 20 Sodium Level 145MEQ/L 144MEQ/L Potassium Level 4.1MEQ/L 3.9MEQ/L Chloride Level 109MEQ/L 108MEQ/L Carbon Dioxide Level 27MEQ/L 27MEQ/L Anion Gap 9MEQ/L 9MEQ/L Blood Urea Nitrogen 16.0MG/DL 15.0MG/DL Creatinine 0.8MG/DL 0.9MG/DL Glomerular Filtration Rate Calc 68 59 BUN/Creatinine Ratio 20RATIO 17RATIO Glucose Level 87MG/DL 88MG/DL Calculated Osmolality 279MOSM/KG 277MOSM/KG Calcium Level 8.6MG/DL 8.7MG/DL Total Bilirubin 1.00MG/DL Icterus Index < 2 < 2 Aspartate Amino Transf (AST/SGOT) 20U/L Alanine Aminotransferase (ALT/SGPT) 24U/L Alkaline Phosphatase 77U/L Total Protein 5.7G/DL Albumin 3.2G/DL Globulin 2.5G/DL Albumin/Globulin Ratio 1.3RATIO Triglycerides Level 110MG/DL Cholesterol Level 171MG/DL LDL Cholesterol, Calculated 99.0 VLDL Cholesterol 22.0MG/DL HDL Cholesterol Direct 50MG/DL Cholesterol/HDL Ratio 3.4RATIO Laboratory Tests 05/19/16 05:07 Laboratory Tests 05/19/16 05:07 Medications Current Medications Medications (Trade) Dose Ordered Sig/Nona Start Time Stop Time Status Last Admin Dose Admin Amiodarone HCl/ Sodium Chloride (Cordarone/NS) 518 ml @ 34.53 mls/ hr Q15H1M 05/17/16 16:27 05/18/16 06:39 DC 05/17/16 18:00 34.53 MLS/HR Enoxaparin Sodium (Lovenox) 1 MG/KG Q12HR 05/18/16 04:00 05/18/16 06:37 DC 05/18/16 05:37 83 MG Furosemide (Lasix) 10 mg DAILY 05/18/16 09:00 05/19/16 08:58 10 MG Levothyroxine Sodium (Synthroid) 88 mcg ACB 05/18/16 07:30 05/19/16 05:32 88 MCG Lisinopril (Prinivil) 5 mg DAILY 05/18/16 09:00 05/19/16 08:59 5 MG Naproxen Sodium (ALEVE 220 mg) 220 mg BIDWM 05/18/16 21:00 05/19/16 06:43 220 MG Pantoprazole Sodium (Protonix) 40 mg ACB 05/18/16 07:40 05/19/16 05:31 40 MG Potassium Chloride (Kdur) 10 meq WB 05/18/16 08:00 05/18/16 08:52 DC Prednisone (PredniSONE) 5 mg WB 05/18/16 08:00 05/19/16 08:58 5 MG Ondansetron HCl (Zofran) 4 mg Q6H PRN 05/17/16 22:45 Acetaminophen (Tylenol Regular Strength) 650 mg Q5H PRN 05/17/16 22:45 Diphenhydramine HCl (Benadryl) 25 mg HS PRN 05/17/16 22:45 Docusate Sodium (Colace) 100 mg DAILY 05/18/16 09:00 05/19/16 08:57 100 MG Polyethylene Glycol (Miralax) 17 g DAILY PRN 05/17/16 22:45 Magnesium Hydroxide (Mom) 30 ml DAILY PRN 05/17/16 22:45 Zolpidem Tartrate (AMBIEN 5mg) 5 mg HS PRN 05/17/16 22:45 Enoxaparin Sodium 83 mg 83 mg Q12HR 05/18/16 09:00 05/18/16 17:49 DC Amiodarone HCl 900 mg/Sodium Chloride 518 ml @ 16 mls/hr Q24H 05/18/16 06:45 05/18/16 08:34 DC Amiodarone HCl/ Sodium Chloride (Cordarone/NS) 500 ml @ 16.66 mls/ hr Q24H 05/18/16 08:45 05/18/16 17:37 DC Potassium Chloride (Kdur) 10 meq WB 05/18/16 09:00 05/19/16 08:57 10 MEQ Apixaban (Eliquis) 5 mg BID 05/18/16 17:45 05/19/16 08:58 5 MG Amiodarone HCl (Pacerone) 200 mg DAILY 05/18/16 17:45 05/19/16 08:59 200 MG Hospital Course Pt came in with Afib with RVR. Had been on Flecainide. Stopped flecainide. Started on Amiodarone and Eliquis Problems: (1) Atrial fibrillation with RVR Status: Acute (2) Hypertension Status: Chronic Assessment & Plan: controlled on current meds (3) Hypothyroidism Status: Chronic (4) Dyspnea Status: Chronic (5) Chest tightness Status: Resolved (6) Fibromyalgia Status: Chronic Code Status Do Not Resuscitate Home Meds Active Scripts Amiodarone HCl (Pacerone) 200 Mg Tablet, 200 MG PO DAILY for 30 Days, #30 TAB 11 Refills Prov:STANTON GALVEZ DIETARY CLERK 05/19/16 Apixaban (Eliquis) 5 Mg Tablet, 5 MG PO BID for 30 Days, #60 TAB 11 Refills Prov:STANTON GALVEZ DIETARY CLERK 05/19/16 Reported Medications Lisinopril (Lisinopril) 5 Mg Tablet, 5 MG PO DAILY for HYPERTENSION, TAB 05/17/16 Naproxen Sodium (Naproxen 220mg) 220 Mg Tablet, 220 MG PO BIDWM, TAB 05/17/16 Prednisone (Prednisone) 5 Mg Tablet, 5 MG PO WB, TAB Take 1 tablet, by mouth, once a day with breakfast. 05/17/16 Furosemide (Furosemide) 20 Mg Tablet, 0.5 TAB PO DAILY, TAB 05/17/16 Potassium Chloride (Potassium Chloride) 10 Meq Tablet.er, 10 MEQ PO WB, TAB Take 1 tablet, by mouth, daily with breakfast 05/17/16 Levothyroxine Sodium (Synthroid) 88 Mcg Tablet, 88 MCG PO DAILY 08/22/13 Pantoprazole (Protonix) 40 Mg Tablet.dr, 40 MG PO DAILY 09/14/11 Discontinued Reported Medications Naproxen (Naproxen) 500 Mg Tablet.dr, 1 TAB PO BID, #60 TAB 2 Refills 05/17/16 Acetaminophen (Tylenol Extra Strength) 500 Mg Tablet, 1000 MG PO TID 09/14/11 Discontinued Scripts Flecainide Acetate (Tambocor) 50 Mg Tablet, 50 MG PO BID, #60 TAB 3 Refills Prov:JAMAAL COLMENARES P.AEdd 08/24/13 Discharge Disposition Dismissed to Assisted Living. PABLO ENRIQUEZ MD 05/22/16 1550: Hospital Course Home Meds Active Scripts Amiodarone HCl (Pacerone) 200 Mg Tablet, 200 MG PO DAILY for 30 Days, #30 TAB 11 Refills Prov:STANTON GALVEZ APRN 05/19/16 Apixaban (Eliquis) 5 Mg Tablet, 5 MG PO BID for 30 Days, #60 TAB 11 Refills Prov:STANTON GALVEZ APRN 05/19/16 Reported Medications Lisinopril (Lisinopril) 5 Mg Tablet, 5 MG PO DAILY for HYPERTENSION, TAB 05/17/16 Naproxen Sodium (Naproxen 220mg) 220 Mg Tablet, 220 MG PO BIDWM, TAB 05/17/16 Prednisone (Prednisone) 5 Mg Tablet, 5 MG PO WB, TAB Take 1 tablet, by mouth, once a day with breakfast. 05/17/16 Furosemide (Furosemide) 20 Mg Tablet, 0.5 TAB PO DAILY, TAB 05/17/16 Potassium Chloride (Potassium Chloride) 10 Meq Tablet.er, 10 MEQ PO WB, TAB Take 1 tablet, by mouth, daily with breakfast 05/17/16 Levothyroxine Sodium (Synthroid) 88 Mcg Tablet, 88 MCG PO DAILY 08/22/13 Pantoprazole (Protonix) 40 Mg Tablet.dr, 40 MG PO DAILY 09/14/11 Discontinued Reported Medications Naproxen (Naproxen) 500 Mg Tablet.dr, 1 TAB PO BID, #60 TAB 2 Refills 05/17/16 Acetaminophen (Tylenol Extra Strength) 500 Mg Tablet, 1000 MG PO TID 09/14/11 Discontinued Scripts Flecainide Acetate (Tambocor) 50 Mg Tablet, 50 MG PO BID, #60 TAB 3 Refills Prov:JAMAAL COLMENARES P.AEdd 08/24/13 Discharge Disposition After examining the patient I agree with the above assessment. I am involved in the formulation of the patient's plan of care. STANTON GALVEZ APRN May 19, 2016 11:33 PABLO ENRIQUEZ MD May 22, 2016 15:50
[2016-05-19 12:17] VITALS: BP 138/78; PULSE 64; RESP 16; TEMP 96.8; O2SAT 99
--- NOTE | 2016-05-19 14:00 | NUR ---
DISCHARGED PATIENT IS DISCHARGED TO ASSISTED LIVING. SON IS HERE AT THIS TIME TO TAKE PATIENT HOME. DISCHARGE AND MEDICATION INSTRUCTIONS GIVEN TO SON AND PATIENT. PATIENT IS WHEELED OUT TO PRIVATE VEHICLE. PRESCRIPTIONS GIVEN TO TO PATIENT.
--- NOTE | 2016-05-26 10:34 | NUR ---
ALYSE PT TELEPHONED CM TO REPORT JOINT PAIN. SHE IS WONDERING IF IT IS RELATED TO ELAQUIS USE. SHE IS ADVISED TO CONTACT DR. ENRIQUEZ'S OFFICE. SHE IS GIVEN PHONE NUMBER.
== END 2016-05-19 14:41 | disposition home or self-care (01) | DRG 310 ==
LOC: OBSVTOIN 16:13 → CCU 16:13 → INTOOBSV 05-18 04:14 → OBSVTOIN 05-18 04:14 → MED 05-18 19:52
PROVIDERS: ADMIT Internal Medicine Cardiovascular Disease; ATTEND Internal Medicine Cardiovascular Disease
DX: I48.91 Unspecified atrial fibrillation (principal); I10 Essential (primary) hypertension; E03.9 Hypothyroidism, unspecified; I27.2 Other secondary pulmonary hypertension; M79.7 Fibromyalgia; Z66 Do not resuscitate; R07.89 Other chest pain; R06.00 Dyspnea, unspecified; Z79.52 Long term (current) use of systemic steroids
CPT/HCPCS: 36415; 80048; 80053; 80061; 83735; 84443; 84484; 85025; 85027; 93005; 99218